=== PATIENT | male | born 1955 | race American Indian/Alaskan Native ===

== ENCOUNTER 2017-03-06 12:30 | Inpatient (IN) | payer OTHER ==
[2017-03-06] MEDS ORDERED: NACL 0.9% 1000 ML 1,000 ML ONE ×2 (12:38→15:54)
[2017-03-06] MEDS ORDERED: NACL 0.9% 500 ML 500 ML IV ONE ×2 (12:53→15:50)
[2017-03-06 13:35] LABS: Basophils % (Auto) 0.3 % (0.0-1.8); Eosinophils % (Auto) 0.1 % (0.0-4.3); Hematocrit 36.2 % (35.5-45.6); Hemoglobin 11.8 gm/dl (11.8-15.2); Mean Corpuscular HGB Conc 33 % (32-34); Mean Corpuscular Hemoglobin 32 pg (28-32); Mean Corpuscular Volume 99 fl (84-94); Red Blood Count 3.67 M/mm3 (3.65-5.03); Red Cell Distribution Width 14.1 % (13.2-15.2); White Blood Count 11.2 K/mm3 (4.5-11.0)
[2017-03-06 13:39] LABS: Platelet Count 65 K/mm3 (140-440)
--- NOTE | 2017-03-06 13:43 | Emergency Department Report ---
HPI - General Chief Complaint: Weakness Time Seen by Provider: 03/06/17 13:16 - HPI HPI: This is a 62 year-old male presents to the emergency department via EMS with a complaint of some generalized weakness and pain to his buttocks where he feels he has decubitus ulcers. Patient has a past medical history of CHF, COPD, diabetes, hypertension and he is wheelchair dependent and has 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 He has an indwelling Pierre catheter. She follows with the [facility] for his primary care needs. Patient does appear very fatigued and is sort of a poor historian at this point. ED Past Medical Hx - Past Medical History Previous Medical History?: Yes Hx Hypertension: Yes Hx Congestive Heart Failure: Yes Hx Diabetes: Yes Hx COPD: Yes - Social History Smoking Status: Current Every Day Smoker Substance Use Type: Prescribed ED Review of Systems ROS: Stated complaint: LETHARGIC/HYPOTENSIVE/ULCERS Other details as noted in HPI Comment: Unobtainable due to pts medical conditions Physical Exam - Physical Exam Vital Signs: Vital Signs 03/06/17 03/06/17 03/06/17 12:31 12:35 12:45 Temperature 98.3 F Pulse Rate 73 51 L 53 L Respiratory 17 9 L Rate Blood Pressure 94/46 97/45 O2 Sat by Pulse 97 99 Oximetry Physical Exam: GENERAL: The patient is well-developed well-nourished. HENT: Normocephalic. Atraumatic. Patient has moist mucous membranes. EYES: Extraocular motions are intact. Pupils equal reactive to light bilaterally. NECK: Supple. Trachea is midline. CHEST/LUNGS: Clear to auscultation. There is no respiratory distress noted. HEART/CARDIOVASCULAR: Regular. There is no tachycardia. There is no murmur. ABDOMEN: Abdomen is soft, nontender. Patient has normal bowel sounds. There is no abdominal distention. SKIN: Skin is warm and dry. There are some posterior bilateral lower extremity pressure ulcers but no surrounding erythema or any weeping or drainage. NEURO: The patient is awake, alert, and oriented. The patient is cooperative. The patient has normal speech. MUSCULOSKELETAL: There is no tenderness or deformity. Chronic lower extremity paraplegia. There is no evidence of acute injury. ED Course Vital Signs 03/06/17 03/06/17 03/06/17 12:31 12:35 12:45 Temperature 98.3 F Pulse Rate 73 51 L 53 L Respiratory 17 9 L Rate Blood Pressure 94/46 97/45 O2 Sat by Pulse 97 99 Oximetry - Central Line Placement Right Femoral Consent Obtained: verbal consent Time Out Performed: Yes Patient Placed on Monitor/Pulse Ox: Yes Prep: mask, gown, gloves Central Line Prep: Chlorhexidine scrub Local Anesthesia Used: Lidocaine 1% Amount of Anesthesia Used (mls): 3 Ultrasound Used for Placement: Yes Central Line Lumen Inserted: triple Bloods Obtained for Lab: Yes Central Line Position: good blood return, all ports aspirated, flus, sutured in place with nyl Dressing Applied: Tegaderm Patient Tolerated Procedure: well Complications: none ED Medical Decision Making - Lab Data Result diagrams: 03/06/17 13:20 03/06/17 13:20 - EKG Data -: EKG Interpreted by Me EKG shows normal: sinus rhythm, axis, intervals (prolonged QT interval), QRS complexes, ST-T waves (nonspecific ST-T waves) Rate: bradycardia (52 bpm) - EKG Data Interpretation: nonspecific ST-T wave daniel - Radiology Data Radiology results: report reviewed, image reviewed interpreted by me: Chest x-ray does not show any acute process. There are no pleural effusions, obvious pneumonia and there is no pneumothorax. ULTRASOUND ABDOMEN LIMITED: TECHNIQUE: Transabdominal ultrasound with color Doppler interrogation. HISTORY: Elevated bilirubin. COMPARISON: none. FINDINGS: LIVER: The liver is echogenic consistent with diffuse fatty infiltration or nonspecific liver parenchymal disease. BILIARY SYSTEM: Normal. PANCREAS: Normal. RIGHT KIDNEY: The right kidney measures 10.9 cm. There are multiple echogenic areas within the right kidney consistent with stones. No associated hydronephrosis. PROXIMAL AORTA: Normal. ASCITES: None. IMPRESSION: Mild hepatic steatosis. Right nephrolithiasis, nonobstructing. Transcribed By: TTR Dictated By: NEMESIO LOCKWOOD JR, MD Electronically Authenticated By: NEMESIO LOCKWOOD JR, MD Signed Date/Time: 03/06/17 1527 - Medical Decision Making Patient has a mild leukocytosis, UTI, lactic acidosis, mild hyponatremia and some hyperglycemia without DKA. He has persistent hypotension despite some IV fluid resuscitation and we do not want to volume overload him as he has a history of CHF. Right femoral central line was placed. Blood and urine cultures sent and patient was started on antibiotics. The patient may need pressors and may need to be transferred to the ICU but has been accepted for admission by the hospitalist, Dr. Tee. - Differential Diagnosis sepsis, UTI, pneumonia, decubitus ulcers Critical Care Time: Yes Critical care time in (mins) excluding proc time.: 35 Critical care attestation.: If time is entered above; I have spent that time in minutes in the direct care of this critically ill patient, excluding procedure time. Critical care time spent on this patient and during his initial evaluation, multiple re-evaluations , IV fluid resuscitation, ordering and interpretation of labs and imaging, discussion with the patient and his family, discussion with the hospitalist and disposition planning. This is independent of the time spent doing a central line procedure. Critical Care Time: 35 minutes ED Disposition Clinical Impression: Lactic acidosis Sepsis Qualifiers: Sepsis type: sepsis due to unspecified organism Qualified Code(s): A41.9 - Sepsis, unspecified organism UTI (urinary tract infection) Qualifiers: Urinary tract infection type: acute cystitis Hematuria presence: with hematuria Qualified Code(s): N30.01 - Acute cystitis with hematuria Hypotension Qualifiers: Hypotension type: unspecified hypotension type Qualified Code(s): I95.9 - Hypotension, unspecified Disposition: DC-09 OP ADMIT IP TO THIS HOSP Is pt being admited?: Yes Condition: Serious Time of Disposition: 16:15
[2017-03-06 13:44] LABS: Bacteria,Urine 4+ /HPF (Negative); Bilirubin,Urine NEG (Negative); Blood,Urine LG (Negative); Ketones,Urine NEG (Negative); Leukocyte Esterase,Urine MOD (Negative); Mucus,Urine 1+ /HPF; Nitrite,Urine NEG (Negative)
[2017-03-06 13:46] LABS: RBC,Urine > 182.0 /HPF (0.0-6.0); WBC,Urine > 182.0 /HPF (0.0-6.0)
--- NOTE | 2017-03-06 13:48 | XRay Report ---
AP CHEST: HISTORY: Sepsis, weakness AP view of the chest demonstrates a normal mediastinal and cardiac contour with clear lungs and normal bony and soft tissue structures. IMPRESSION: Unremarkable AP chest.
[2017-03-06 13:50] LABS: INR 1.43 (0.87-1.13)
[2017-03-06] MEDS ORDERED: LEVAQUIN 750MG/150ML 750 MG/150 ML BAG IV ONE (13:50)
[2017-03-06 14:01] LABS: Alanine Aminotransferase 10 units/L (7-56); Albumin 2.3 g/dL (3.9-5); Albumin/Globulin Ratio 0.5 %; Alkaline Phosphatase 83 units/L (35-129); Anion Gap 20 mmol/L; BUN/Creatinine Ratio 9; Blood Urea Nitrogen 12 mg/dL (9-20); Calcium 8.3 mg/dL (8.4-10.2); Carbon Dioxide 20 mmol/L (22-30); Chloride 95.9 mmol/L (98-107); Glucose 295 mg/dL (75-100); Potassium 4.4 mmol/L (3.6-5.0); Sodium 131 mmol/L (137-145); Total Protein 7.4 g/dL (6.3-8.2)
--- NOTE | 2017-03-06 15:31 | Ultrasound Report ---
ULTRASOUND ABDOMEN LIMITED: TECHNIQUE: Transabdominal ultrasound with color Doppler interrogation. HISTORY: Elevated bilirubin. COMPARISON: none. FINDINGS: LIVER: The liver is echogenic consistent with diffuse fatty infiltration or nonspecific liver parenchymal disease. BILIARY SYSTEM: Normal. PANCREAS: Normal. RIGHT KIDNEY: The right kidney measures 10.9 cm. There are multiple echogenic areas within the right kidney consistent with stones. No associated hydronephrosis. PROXIMAL AORTA: Normal. ASCITES: None. IMPRESSION: Mild hepatic steatosis. Right nephrolithiasis, nonobstructing.
[2017-03-06] MEDS ORDERED: NACL 0.9% 1000 ML 1,000 ML IV ONE (15:59)
[2017-03-06] MEDS ORDERED: HEPARIN ONE (16:30)
[2017-03-06] MEDS ORDERED: LEVOPHED 8 MG in NACL 0.9% 250ML 242 ML IV SCH (20:00)
--- NOTE | 2017-03-06 21:05 | History and Physical Report ---
History of Present Illness Date of examination: 03/06/17 Date of admission: 03/06/17 16:15 Chief complaint: CC Extreme weaknwss and Fatigue for 3 days History of present illness: HPI This is a 62 year-old male presents to the emergency department via EMS with a complaint of some generalized weakness and pain to his buttocks where he feels he has decubitus ulcers.Patient had a C spine injury while in [employer] around 1975.Since then he has been a paraplegic and bed bound with transfer to wheel chair by Nurses from [place].They come twice a day and spend about 2 hrs in am and 3 hrs in PM taking care of his ADL's Patient has a past medical history of CHF, COPD, diabetes, hypertension and he is wheelchair dependent and has 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 He has an indwelling Santos catheter. She follows with the [facility] for his primary care needs. Patient does appear very fatigued and is sort of a poor historian at this point.He attributes his resent illness to Visiting nurses coming irregularly Does not want to go to SNF Past Medical History Hypertension Congestive Heart Failure Diabetes COPD -Social History Smoking Status: Current Every Day Smoker Substance Use Type: Prescribed Lives alone with the help of visiting nurses from [place] system for 2 hrs in AM and 3 hrs in PM Surgical History: Fam Hx Htn ROS: Stated complaint: LETHARGIC/HYPOTENSIVE/ULCERS Other details as noted in HPI Comment: Unobtainable due to pts medical conditions Medications and Allergies Allergies Allergy/AdvReac Type Severity Reaction Status Date / Time No Known Allergies Allergy Unverified 03/06/17 12:51 Active Meds: Active Medications Norepinephrine 8 mg/ Sodium (Chloride) 250 mls @ 3.75 mls/hr IV TITR ESTRELLA; 2 MCG /MIN PRN Reason: Protocol Last Admin: 03/06/17 20:20 Dose: 2 mcg/min, 3.75 mls/hr Insulin Human Regular (Novolin R) 0 units SUB-Q ACHS ESTRELLA PRN Reason: Protocol Stop: 03/09/17 21:59 Last Admin: 03/06/17 18:55 Dose: 2 units Exam - Constitutional Vitals: Temp Pulse Resp BP Pulse Ox 98.3 F 49 L 13 90/49 99 03/06/17 12:45 03/06/17 19:16 03/06/17 19:16 03/06/17 19:16 03/06/17 19:16 General appearance: Present: mild distress, well-nourished - EENT Eyes: Present: PERRL ENT: hearing intact, clear oral mucosa - Neck Neck: Present: supple, normal ROM - Respiratory Respiratory effort: normal Respiratory: bilateral: CTA - Cardiovascular Heart rate: 80 Rhythm: regular Heart Sounds: Present: S1 & S2. Absent: rub, click - Extremities Extremities: pulses symmetrical, No edema, abnormal (Ulcer -superficial ulcer healing on LLE lateral aspect of leg 10 inches above ankle) Peripheral Pulses: within normal limits - Abdominal General gastrointestinal: Present: soft, non-tender, non-distended, normal bowel sounds Male genitourinary: Present: normal - Integumentary Integumentary: Present: clear, warm, dry - Musculoskeletal Musculoskeletal: gait normal, strength equal bilaterally - Psychiatric Psychiatric: appropriate mood/affect, intact judgment & insight - Neurologic Neurologic: CNII-XII intact, moves all extremities Results - Labs CBC & Chem 7: 03/07/17 04:58 03/07/17 04:58 Labs: Laboratory Last Values WBC 11.2 K/mm3 (4.5-11.0) H 03/06/17 13:20 RBC 3.67 M/mm3 (3.65-5.03) 03/06/17 13:20 Hgb 11.8 gm/dl (11.8-15.2) 03/06/17 13:20 Hct 36.2 % (35.5-45.6) 03/06/17 13:20 MCV 99 fl (84-94) H 03/06/17 13:20 MCH 32 pg (28-32) 03/06/17 13:20 MCHC 33 % (32-34) 03/06/17 13:20 RDW 14.1 % (13.2-15.2) 03/06/17 13:20 Plt Count 65 K/mm3 (140-440) L 03/06/17 13:20 Lymph % (Auto) 20.6 % (13.4-35.0) 03/06/17 13:20 [place] % (Auto) 7.5 % (0.0-7.3) H 03/06/17 13:20 Eos % (Auto) 0.1 % (0.0-4.3) 03/06/17 13:20 Baso % (Auto) 0.3 % (0.0-1.8) 03/06/17 13:20 Lymph # 2.3 K/mm3 (1.2-5.4) 03/06/17 13:20 [place] # 0.8 K/mm3 (0.0-0.8) 03/06/17 13:20 Eos # 0.0 K/mm3 (0.0-0.4) 03/06/17 13:20 Baso # 0.0 K/mm3 (0.0-0.1) 03/06/17 13:20 Seg Neutrophils % 71.5 % (40.0-70.0) H 03/06/17 13:20 Seg Neutrophils # 8.0 K/mm3 (1.8-7.7) H 03/06/17 13:20 PT 18.2 Sec. (12.2-14.9) H 03/06/17 13:20 INR 1.43 (0.87-1.13) H 03/06/17 13:20 VBG pH 7.397 (7.320-7.420) 03/06/17 13:20 Sodium 131 mmol/L (137-145) L 03/06/17 13:20 Potassium 4.4 mmol/L (3.6-5.0) 03/06/17 13:20 Chloride 95.9 mmol/L (98-107) L 03/06/17 13:20 Carbon Dioxide 20 mmol/L (22-30) L 03/06/17 13:20 Anion Gap 20 mmol/L 03/06/17 13:20 BUN 12 mg/dL (9-20) 03/06/17 13:20 Creatinine 1.3 mg/dL (0.8-1.5) 03/06/17 13:20 Estimated GFR > 60 ml/min 03/06/17 13:20 BUN/Creatinine Ratio 9 % 03/06/17 13:20 Glucose 295 mg/dL (75-100) H 03/06/17 13:20 POC Glucose 191 (70-105) H 03/06/17 18:02 Lactic Acid 2.20 mmol/L (0.7-2.0) H* 03/06/17 16:35 Calcium 8.3 mg/dL (8.4-10.2) L 03/06/17 13:20 Total Bilirubin 2.20 mg/dL (0.1-1.2) H 03/06/17 13:20 AST 23 units/L (5-40) 03/06/17 13:20 ALT 10 units/L (7-56) 03/06/17 13:20 Alkaline Phosphatase 83 units/L (35-129) 03/06/17 13:20 Total Protein 7.4 g/dL (6.3-8.2) 03/06/17 13:20 Albumin 2.3 g/dL (3.9-5) L 03/06/17 13:20 Albumin/Globulin Ratio 0.5 % 03/06/17 13:20 Urine Color Red (Yellow) 03/06/17 13:21 Urine Turbidity Clear (Clear) 03/06/17 13:21 Urine pH 6.0 (5.0-7.0) 03/06/17 13:21 Ur Specific [place] 1.014 (1.003-1.030) 03/06/17 13:21 Urine Protein 100 mg/dl mg/dL (Negative) 03/06/17 13:21 Urine Glucose (UA) Neg mg/dL (Negative) 03/06/17 13:21 Urine Ketones Neg mg/dL (Negative) 03/06/17 13:21 Urine Blood Lg (Negative) 03/06/17 13:21 Urine Nitrite Neg (Negative) 03/06/17 13:21 Urine Bilirubin Neg (Negative) 03/06/17 13:21 Urine Urobilinogen 4.0 mg/dL (<2.0) 03/06/17 13:21 Ur Leukocyte Esterase Mod (Negative) 03/06/17 13:21 Urine WBC (Auto) > 182.0 /HPF (0.0-6.0) H 03/06/17 13:21 Urine RBC (Auto) > 182.0 /HPF (0.0-6.0) 03/06/17 13:21 U Epithel Cells (Auto) 2.0 /HPF (0-13.0) 03/06/17 13:21 Urine Bacteria (Auto) 4+ /HPF (Negative) 03/06/17 13:21 Urine WBC Clumps 3+ /HPF 03/06/17 13:21 Urine Mucus 1+ /HPF 03/06/17 13:21 Short CBC 03/06/17 03/07/17 Range/Units 13:20 04:58 WBC 11.2 H 10.8 (4.5-11.0) K/mm3 Hgb 11.8 12.2 (11.8-15.2) gm/dl Hct 36.2 35.9 (35.5-45.6) % Plt Count 65 L 68 L (140-440) K/mm3 BMP 03/06/17 03/07/17 13:20 04:58 Sodium 131 L 134 L Potassium 4.4 3.4 L D Chloride 95.9 L 99.4 Carbon Dioxide 20 L 23 BUN 12 10 Creatinine 1.3 0.9 Glucose 295 H 158 H Calcium 8.3 L 7.9 L Liver Function 03/06/17 03/07/17 Range/Units 13:20 04:58 Total Bilirubin 2.20 H 1.50 H (0.1-1.2) mg/dL AST 23 22 (5-40) units/L ALT 10 10 (7-56) units/L Alkaline Phosphatase 83 88 (35-129) units/L Albumin 2.3 L 2.1 L (3.9-5) g/dL Urine 03/06/17 Range/Units 13:21 Urine Color Red (Yellow) Urine pH 6.0 (5.0-7.0) Ur Specific [place] 1.014 (1.003-1.030) Urine Protein 100 mg/dl (Negative) mg/dL Urine Glucose (UA) Neg (Negative) mg/dL - Imaging and Cardiology EKG: report reviewed (NSR 52/min) Chest x-ray: report reviewed (NAF) US - abdomen: report reviewed (NAF) Assessment and Plan Assessment and plan: The high probability of a clinically significant, sudden or life threatening deterioration of the [Pulmonary, cadiac, renal] system(s) required my full and direct attention, intervention and personal management. The aggregate critical care time was [41] minutes. This time is in addition to time spent performing reported procedures but includes the following: [x] Data Review and interpretation [x] Patient assessment and monitoring of vital signs [x] Documentation [x] Medication orders and management Advance Directives: Yes (Full code) VTE prophylaxis?: Chemical Plan of care discussed with patient/family: Yes - Patient Problems (1) Sepsis Current Visit: Yes Status: Acute Qualifiers: Sepsis type: sepsis due to unspecified organism Qualified Code(s): A41.9 - Sepsis, unspecified organism Plan to address problem: Sepsis sec to UTI Started on Zosyn and Vancomycin ID consult requsted for ABx Coverage Patient has indwelling santos catheter (2) Hypotension Current Visit: Yes Status: Acute Qualifiers: Hypotension type: unspecified hypotension type Qualified Code(s): I95.9 - Hypotension, unspecified Plan to address problem: Sec to sepsis IV NS boluses given and not responding. Started on IV Levophed. Requested Dr Mars for Cental line (3) Lactic acidosis Current Visit: Yes Status: Acute Plan to address problem: Sec to Sepsis (4) UTI (urinary tract infection) Current Visit: Yes Status: Acute Qualifiers: Urinary tract infection type: acute cystitis Hematuria presence: with hematuria Qualified Code(s): N30.01 - Acute cystitis with hematuria Plan to address problem: Check Blood and urine cultures On Zosyn and vancomycin (5) Decubital ulcer Current Visit: Yes Status: Chronic Qualifiers: Pressure ulcer location: calf Pressure ulcer stage: stage 2 Laterality: left Qualified Code(s): L89.892 - Pressure ulcer of other site, stage 2 Plan to address problem: Wound care requested (6) Paraplegia Current Visit: Yes Status: Chronic Plan to address problem: Patient dependent on Nurses for ADL's and not getting Home visits regularly. Suggested SNF but patient refuses vehemently. Family wants SNF but Patient has to decide for himself (7) COPD (chronic obstructive pulmonary disease) Current Visit: Yes Status: Chronic Qualifiers: Emphysema type: unspecified Plan to address problem: Duonebs prn (8) Stasis dermatitis of both legs Current Visit: Yes Status: Chronic (9) DVT prophylaxis Current Visit: Yes Status: Acute Plan to address problem: on Lovenox
[2017-03-06] MEDS ORDERED: MILK OF MAGNESIA PO PRN (21:07)
[2017-03-06] MEDS ORDERED: TYLENOL PO PRN (21:07)
[2017-03-06] MEDS ORDERED: DULCOLAX PR PRN (21:07)
[2017-03-06] MEDS ORDERED: ZOFRAN IV PRN (21:07)
[2017-03-06] MEDS: NACL 0.9% 1000 ML 1,000 ML IV SCH (22:00)
[2017-03-06] MEDS ORDERED: HEPARIN SUB-Q SCH (22:00)
[2017-03-06] MEDS ORDERED: VANCOMYCIN 2,000 MG in NACL 0.9% 500 ML 500 ML IV ONE (22:00)
[2017-03-06] MEDS ORDERED: VANCOMYCIN PHARMACY TO DOSE IV SCH (22:00)
[2017-03-06] MEDS: PEPCID IV SCH (23:13)
[2017-03-06] MEDS: ZOSYN/NS 4.5GM/100ML 4.5 GM/100 ML VIAL IV SCH (23:16)
[2017-03-07] MEDS: PERCOCET 5/325 PO PRN ×3 (04:44→23:27)
[2017-03-07 05:06] LABS: Basophils % (Auto) 0.5 % (0.0-1.8); Hematocrit 35.9 % (35.5-45.6); Hemoglobin 12.2 gm/dl (11.8-15.2); Mean Corpuscular HGB Conc 34 % (32-34); Mean Corpuscular Hemoglobin 33 pg (28-32); Mean Corpuscular Volume 98 fl (84-94); Red Blood Count 3.66 M/mm3 (3.65-5.03); White Blood Count 10.8 K/mm3 (4.5-11.0)
[2017-03-07 05:07] LABS: Platelet Count 68 K/mm3 (140-440)
[2017-03-07 05:32] LABS: Alanine Aminotransferase 10 units/L (7-56); Albumin 2.1 g/dL (3.9-5); Albumin/Globulin Ratio 0.4 %; Alkaline Phosphatase 88 units/L (35-129); Anion Gap 15 mmol/L; BUN/Creatinine Ratio 11; Blood Urea Nitrogen 10 mg/dL (9-20); Calcium 7.9 mg/dL (8.4-10.2); Carbon Dioxide 23 mmol/L (22-30); Chloride 99.4 mmol/L (98-107); Glucose 158 mg/dL (75-100); Potassium 3.4 mmol/L (3.6-5.0); Sodium 134 mmol/L (137-145); Total Protein 7.1 g/dL (6.3-8.2)
[2017-03-07] MEDS: ZOSYN/NS 4.5GM/100ML 4.5 GM/100 ML VIAL IV SCH ×3 (06:06→23:25)
[2017-03-07] MEDS ORDERED: K-DUR PO ONE (10:00)
[2017-03-07] MEDS: PEPCID IV SCH ×2 (10:05→23:26)
--- NOTE | 2017-03-07 11:07 | Progress Note ---
Assessment and Plan / Sepsis likely due to UTI Started on Zosyn and Vancomycin ID consult requsted for ABx Coverage Patient has indwelling santos catheter which is has changed in the ER will follow cx /septic shock: Sec to sepsis IV NS boluses given in the ER and placed on levophed. Off levophed since thia am /Lactic acidosis Sec to Sepsis, will trend / UTI (urinary tract infection) follow Blood and urine cultures On Zosyn and vancomycin /Decubital ulcer Wound care requested /Paraplegia Patient dependent on Nurses for ADL's and not getting Home visits regularly. Suggested SNF but patient refuses vehemently. Family wants SNF but Patient has to decide for himself /COPD (chronic obstructive pulmonary disease) Duonebs prn /Stasis dermatitis of both legs wound care /DVT prophylaxis on Lovenox Brief history: 60 years old male with history of HTN, COPD, DM, CHF, paraplegic due to C spine injury while in [employer] around 1975 with chronic indweling santos, admitted on 03/06/2017 due to generalized weakness, lethargy of unknown duration. EMS found him lethargic with a BP of 70/30 and HR of 50 bpm after receiving 0.5 of atropine. He was placed on levophed and admitted to ICU Radiological test: CXR - no infiltrates abdominal US - no ascitis Hospitalist Physical exam: GENERAL: well-developed and well-nourished lying on bed appeared to be in no discomfort. HEENT: Normocephalic. Atraumatic. No conjunctival congestion or icterus. Patient has moist mucous membranes. NECK: Supple. Trachea midline. CHEST/LUNGS: Clear to auscultated bilaterally, breathing nonlabored. No wheezes crackles or rhonchi. HEART/CARDIOVASCULAR: Regular in rate and rhythm. S1 and S2 positive. ABDOMEN: Abdomen is soft, nontender. Patient has normal bowel sounds. SKIN: b/l LE skin discoloration. Warm and dry. NEURO: paraplegic. Follows command. MUSCULOSKELETAL: No joint effusion or tenderness. EXTRIMITY: pulses symmetrical, No edema, abnormal (Ulcer -superficial ulcer healing on LLE lateral aspect of leg 10 inches above ankle) PSYCH: Cooperative. Subjective Date of service: 03/07/17 Interval history: Patient seen and examined. Medical records and medication list reviewed. No acute event overnight noted by the RN. Off levophed since this am Patient denies any chest pain or difficulty breathing. c/o nausea Discussed plan of care at bedside with patient. Objective - Constitutional Vitals: Vital Signs - 12hr 03/06/17 03/06/17 03/06/17 23:15 23:30 23:33 Temperature Pulse Rate 54 L 57 L Pulse Rate [ None] Respiratory 20 14 Rate Blood Pressure 125/50 125/50 139/70 O2 Sat by Pulse 100 100 Oximetry 03/07/17 03/07/17 03/07/17 00:21 00:23 02:00 Temperature 98.4 F Pulse Rate 53 L Pulse Rate [ 53 L None] Respiratory 19 Rate Blood Pressure 114/44 O2 Sat by Pulse 100 100 Oximetry 03/07/17 03/07/17 03/07/17 02:14 02:15 02:41 Temperature Pulse Rate 55 L Pulse Rate [ 57 L 53 L None] Respiratory 21 21 21 Rate Blood Pressure 127/39 110/46 O2 Sat by Pulse 100 100 100 Oximetry 03/07/17 03/07/17 03/07/17 03:00 04:00 04:21 Temperature 98.3 F Pulse Rate 53 L 55 L Pulse Rate [ None] Respiratory 21 21 16 Rate Blood Pressure 115/45 O2 Sat by Pulse 100 99 100 Oximetry 03/07/17 03/07/17 03/07/17 05:00 06:00 07:00 Temperature Pulse Rate 58 L 61 65 Pulse Rate [ None] Respiratory 16 18 20 Rate Blood Pressure 108/49 123/45 114/41 O2 Sat by Pulse 100 100 99 Oximetry 03/07/17 03/07/17 03/07/17 08:00 09:00 10:00 Temperature 99.3 F Pulse Rate 65 80 76 Pulse Rate [ None] Respiratory 21 16 19 Rate Blood Pressure 114/41 103/49 107/49 O2 Sat by Pulse 99 98 99 Oximetry - Labs CBC & Chem 7: 03/07/17 04:58 03/08/17 10:52 Labs: Abnormal lab results 03/06/17 03/06/17 03/06/17 Range/Units 12:45 13:20 13:20 WBC 11.2 H (4.5-11.0) K/mm3 MCV 99 H (84-94) fl MCH (28-32) pg Plt Count 65 L (140-440) K/mm3 [place] % (Auto) 7.5 H (0.0-7.3) % Seg Neutrophils % 71.5 H (40.0-70.0) % Seg Neutrophils # 8.0 H (1.8-7.7) K/mm3 PT 18.2 H (12.2-14.9) Sec. INR 1.43 H (0.87-1.13) Sodium (137-145) mmol/L Potassium (3.6-5.0) mmol/L Chloride (98-107) mmol/L Carbon Dioxide (22-30) mmol/L Glucose (75-100) mg/dL POC Glucose 280 H (70-105) Lactic Acid (0.7-2.0) mmol/L Calcium (8.4-10.2) mg/dL Total Bilirubin (0.1-1.2) mg/dL Albumin (3.9-5) g/dL Urine WBC (Auto) (0.0-6.0) /HPF 03/06/17 03/06/17 03/06/17 Range/Units 13:20 13:20 13:21 WBC (4.5-11.0) K/mm3 MCV (84-94) fl MCH (28-32) pg Plt Count (140-440) K/mm3 [place] % (Auto) (0.0-7.3) % Seg Neutrophils % (40.0-70.0) % Seg Neutrophils # (1.8-7.7) K/mm3 PT (12.2-14.9) Sec. INR (0.87-1.13) Sodium 131 L (137-145) mmol/L Potassium (3.6-5.0) mmol/L Chloride 95.9 L (98-107) mmol/L Carbon Dioxide 20 L (22-30) mmol/L Glucose 295 H (75-100) mg/dL POC Glucose (70-105) Lactic Acid 3.50 H* (0.7-2.0) mmol/L Calcium 8.3 L (8.4-10.2) mg/dL Total Bilirubin 2.20 H (0.1-1.2) mg/dL Albumin 2.3 L (3.9-5) g/dL Urine WBC (Auto) > 182.0 H (0.0-6.0) /HPF 03/06/17 03/06/17 03/07/17 Range/Units 16:35 18:02 04:58 WBC (4.5-11.0) K/mm3 MCV 98 H (84-94) fl MCH 33 H (28-32) pg Plt Count 68 L (140-440) K/mm3 [place] % (Auto) 7.7 H (0.0-7.3) % Seg Neutrophils % (40.0-70.0) % Seg Neutrophils # (1.8-7.7) K/mm3 PT (12.2-14.9) Sec. INR (0.87-1.13) Sodium (137-145) mmol/L Potassium (3.6-5.0) mmol/L Chloride (98-107) mmol/L Carbon Dioxide (22-30) mmol/L Glucose (75-100) mg/dL POC Glucose 191 H (70-105) Lactic Acid 2.20 H* (0.7-2.0) mmol/L Calcium (8.4-10.2) mg/dL Total Bilirubin (0.1-1.2) mg/dL Albumin (3.9-5) g/dL Urine WBC (Auto) (0.0-6.0) /HPF 03/07/17 Range/Units 04:58 WBC (4.5-11.0) K/mm3 MCV (84-94) fl MCH (28-32) pg Plt Count (140-440) K/mm3 [place] % (Auto) (0.0-7.3) % Seg Neutrophils % (40.0-70.0) % Seg Neutrophils # (1.8-7.7) K/mm3 PT (12.2-14.9) Sec. INR (0.87-1.13) Sodium 134 L (137-145) mmol/L Potassium 3.4 L D (3.6-5.0) mmol/L Chloride (98-107) mmol/L Carbon Dioxide (22-30) mmol/L Glucose 158 H (75-100) mg/dL POC Glucose (70-105) Lactic Acid (0.7-2.0) mmol/L Calcium 7.9 L (8.4-10.2) mg/dL Total Bilirubin 1.50 H (0.1-1.2) mg/dL Albumin 2.1 L (3.9-5) g/dL Urine WBC (Auto) (0.0-6.0) /HPF
[2017-03-07] MEDS: VANCOMYCIN 1,750 MG in NACL 0.9% 500 ML 500 ML IV SCH ×2 (12:21→23:26)
--- NOTE | 2017-03-07 12:33 | Consultation ---
History of Present Illness - Reason for Consult Consult date: 03/07/17 sepsis Requesting physician: ROLDAN MCNEAL - History of Present Illness 60 years old male with history of HTN, COPD, DM, CHF, paraplegic due to C spine injury while in [employer] around 1975, admitted on 03/06/2017 due to generalized weakness, lethargy of unknown duration. Patient reports he has been feeling sick for a week. He has a chronic indweling santos cahnged once a month. EMS found him lethargic with a BP of 70/30 and HR of 50 bpm after receiving .5 of atropine. Also noted cloudy urine. He also was c/o pain to his buttocks where he feels he has decubitus ulcers. In the ED, initial temperature was 98.3, heart rate 73, respirations 17, O2 sat 97, blood pressure at night 94/46. White count 11.2. Creat 1.3. Lactic acid 3.5. Urinalysis showed large leukocyte esterase and 182 white blood cells. CXR neg. Abd US shows mild hepatic steatosis and right nephrolithiasis non obstructive. In the ED he was placed on levophed. Microbiology: Blood cultures: 03/06 neg Urine cultures: 03/06 >100 mixed bacteria Respiratory cultures: Current Antimicrobials: Zosyn 03/06 Previous Antimicrobials: Past History Past Medical History: hypertension, hyperlipidemia, other (paraplegia, neurogenic bladder) Past Surgical History: No surgical history Social history: no significant social history Family history: no significant family history Medications and Allergies Allergies Allergy/AdvReac Type Severity Reaction Status Date / Time No Known Allergies Allergy Unverified 03/06/17 12:51 Home Medications Medication Instructions Recorded Confirmed Last Taken Type Insulin NPH/Regular [NovoLIN 70/30] 30 units SQ QAM 03/07/17 03/07/17 03/06/17 History NovoLIN 70/30 20 units SQ QPM 03/07/17 03/07/17 03/05/17 History Active Meds: Active Medications Acetaminophen (Tylenol) 650 mg PO Q4H PRN PRN Reason: Pain MILD(1-3)/Fever >100.5/JOE Bisacodyl (Dulcolax) 10 mg [place] QDAY PRN PRN Reason: Constipation unrelieved by MOM Famotidine (Pepcid) 20 mg IV BID ESTRE[facility] Last Admin: 03/07/17 10:05 Dose: 20 mg Norepinephrine 8 mg/ Sodium (Chloride) 250 mls @ 3.75 mls/hr IV TITR [facility]RE[facility]; 2 MCG /MIN PRN Reason: Protocol Last Titration: 03/07/17 07:30 Dose: 0 mcg/min, 0 mls/hr Sodium Chloride (Nacl 0.9% 1000 Ml) 1,000 mls @ 125 mls/hr IV DIRECT [facility]RE[facility] Last Admin: 03/06/17 22:00 Dose: 125 mls/hr Piperacillin Sod/Tazobactam Sod (Zosyn/Ns 4.5gm/100ml) 4.5 gm in 100 mls @ 200 mls/hr IV Q8HR [facility] PRN Reason: Protocol Last Admin: 03/07/17 06:06 Dose: 200 mls/hr Vancomycin HCl 1,750 mg/ (Sodium Chloride) 517.5 mls @ 333.333 mls/hr IV Q12H [facility] Last Admin: 03/07/17 12:21 Dose: 333.333 mls/hr Insulin Human Regular (Novolin R) 0 units SUB-Q ACHS [facility] PRN Reason: Protocol Last Admin: 03/07/17 12:19 Dose: 2 units Magnesium Hydroxide (Milk Of Magnesia) 30 ml PO Q4H PRN PRN Reason: Constipation Ondansetron HCl (Zofran) 4 mg IV Q8H PRN PRN Reason: N/V unrelieved by Reglan Oxycodone/Acetaminophen (Percocet 5/325) 1 tab PO Q6H PRN PRN Reason: Pain, Moderate (4-6) Last Admin: 03/07/17 10:04 Dose: 1 tab Vancomycin HCl (Vancomycin Pharmacy To Dose) 1 each IV PKCONSULT [facility] PRN Reason: Protocol Review of Systems All systems: negative (as per JANIYA rest neg) Physical Examination - Physical Exam Narrative exam: General appearance: Alert in NAD, conversant Eyes: anicteric sclerae, moist conjunctivae; no lid-lag; PERRLA HENT: Atraumatic; oropharynx clear Neck: Trachea midline; supple, no thyromegaly or lymphadenopathy Lungs: CTA, with normal respiratory effort and no intercostal retractions CV: shaneka Abdomen: Soft, non-tender Extremities: christelle leg edema, + leg ulcer Skin: christelle leg chronic discoloration Psych: Appropriate affect, alert and oriented to person, place and time. Neuro: alert and oriented x 3. paraplegic Lines: - Constitutional Vitals: Vital Signs Temp Pulse Resp BP Pulse Ox 99.3 F 71 16 101/50 99 03/07/17 08:00 03/07/17 12:00 03/07/17 12:00 03/07/17 12:00 03/07/17 12:00 Temperature -Last 24 Hours Temperature 99.3 F Temperature 98.3 F Temperature 98.4 F Temperature 98.3 F Temperature 98.3 F Results - Labs CBC & Chem 7: 03/07/17 04:58 03/07/17 04:58 Labs: Abnormal lab results 03/06/17 03/06/17 03/06/17 Range/Units 12:45 13:20 13:20 WBC 11.2 H (4.5-11.0) K/mm3 MCV 99 H (84-94) fl MCH (28-32) pg Plt Count 65 L (140-440) K/mm3 Polk % (Auto) 7.5 H (0.0-7.3) % Seg Neutrophils % 71.5 H (40.0-70.0) % Seg Neutrophils # 8.0 H (1.8-7.7) K/mm3 PT 18.2 H (12.2-14.9) Sec. INR 1.43 H (0.87-1.13) Sodium (137-145) mmol/L Potassium (3.6-5.0) mmol/L Chloride (98-107) mmol/L Carbon Dioxide (22-30) mmol/L Glucose (75-100) mg/dL POC Glucose 280 H (70-105) Lactic Acid (0.7-2.0) mmol/L Calcium (8.4-10.2) mg/dL Total Bilirubin (0.1-1.2) mg/dL Albumin (3.9-5) g/dL Urine WBC (Auto) (0.0-6.0) /HPF 03/06/17 03/06/17 03/06/17 Range/Units 13:20 13:20 13:21 WBC (4.5-11.0) K/mm3 MCV (84-94) fl MCH (28-32) pg Plt Count (140-440) K/mm3 Polk % (Auto) (0.0-7.3) % Seg Neutrophils % (40.0-70.0) % Seg Neutrophils # (1.8-7.7) K/mm3 PT (12.2-14.9) Sec. INR (0.87-1.13) Sodium 131 L (137-145) mmol/L Potassium (3.6-5.0) mmol/L Chloride 95.9 L (98-107) mmol/L Carbon Dioxide 20 L (22-30) mmol/L Glucose 295 H (75-100) mg/dL POC Glucose (70-105) Lactic Acid 3.50 H* (0.7-2.0) mmol/L Calcium 8.3 L (8.4-10.2) mg/dL Total Bilirubin 2.20 H (0.1-1.2) mg/dL Albumin 2.3 L (3.9-5) g/dL Urine WBC (Auto) > 182.0 H (0.0-6.0) /HPF 03/06/17 03/06/17 03/07/17 Range/Units 16:35 18:02 04:58 WBC (4.5-11.0) K/mm3 MCV 98 H (84-94) fl MCH 33 H (28-32) pg Plt Count 68 L (140-440) K/mm3 Polk % (Auto) 7.7 H (0.0-7.3) % Seg Neutrophils % (40.0-70.0) % Seg Neutrophils # (1.8-7.7) K/mm3 PT (12.2-14.9) Sec. INR (0.87-1.13) Sodium (137-145) mmol/L Potassium (3.6-5.0) mmol/L Chloride (98-107) mmol/L Carbon Dioxide (22-30) mmol/L Glucose (75-100) mg/dL POC Glucose 191 H (70-105) Lactic Acid 2.20 H* (0.7-2.0) mmol/L Calcium (8.4-10.2) mg/dL Total Bilirubin (0.1-1.2) mg/dL Albumin (3.9-5) g/dL Urine WBC (Auto) (0.0-6.0) /HPF 03/07/17 Range/Units 04:58 WBC (4.5-11.0) K/mm3 MCV (84-94) fl MCH (28-32) pg Plt Count (140-440) K/mm3 Polk % (Auto) (0.0-7.3) % Seg Neutrophils % (40.0-70.0) % Seg Neutrophils # (1.8-7.7) K/mm3 PT (12.2-14.9) Sec. INR (0.87-1.13) Sodium 134 L (137-145) mmol/L Potassium 3.4 L D (3.6-5.0) mmol/L Chloride (98-107) mmol/L Carbon Dioxide (22-30) mmol/L Glucose 158 H (75-100) mg/dL POC Glucose (70-105) Lactic Acid (0.7-2.0) mmol/L Calcium 7.9 L (8.4-10.2) mg/dL Total Bilirubin 1.50 H (0.1-1.2) mg/dL Albumin 2.1 L (3.9-5) g/dL Urine WBC (Auto) (0.0-6.0) /HPF Assessment and Plan Assessment: 1) Sepsis with initial septic shock: Present on admission, manifested by hypotension, leukocytosis, increased lactate. Etiology most likely UTI. 2) CA-UTI: pt with chronic indwelling cath and right non obstructive kidney stones -Urine cx >100 K mixed bacteria 3) Paraplegia 4) Neurogenic bladder 5) Sacral decubitus - not fully eval Plan: -follow-up blood cultures, urine culture -obtain C-reactive protein (CRP) -wound care consult and obtain wound cultures if infected -continue zosyn for now -change santos if it has not been done Thank you Dr Mcneal for your consultation, will follow up with you. Genny Granados MD Infectious Diseases Specialist [facility], [place] [facility] [phone] O [phone]
--- NOTE | 2017-03-07 13:42 | Consultation ---
History of Present Illness Consult date: 03/07/17 Requesting physician: ROLDAN MCNEAL Reason for consult: other (septic shock) History of present illness: This is a 62 year-old male presents to the emergency department via EMS with a complaint of some generalized weakness and pain to his buttocks where he feels he has decubitus ulcers.Patient had a C spine injury while in [employer] around 1975.Since then he has been a paraplegic and bed bound with transfer to wheel chair by Nurses from [place]. Patient has a past medical history of CHF, COPD, diabetes, hypertension and he is wheelchair dependent and has 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 He has an indwelling Santos catheter. He follows with the [facility] for his primary care needs. Patient does appear very fatigued and is sort of a poor historian at this point. He has a chronic indweling santos changed once a month. EMS found him lethargic with a BP of 70/30 and HR of 50 bpm after receiving .5 of atropine. Also noted cloudy urine. He also was c/o pain to his buttocks where he feels he has decubitus ulcers. In the ED, initial temperature was 98.3, heart rate 73, respirations 17, O2 sat 97, blood pressure at night 94/46. White count 11.2. Creat 1.3. Lactic acid 3.5. Urinalysis showed large leukocyte esterase and 182 white blood cells. CXR negative( films personally reviewed). Abd US shows mild hepatic steatosis and right nephrolithiasis non obstructive. In the ED he was placed on norepinephrine to maintain adequate blood pressure. He was admitted to the ICU and we have been consulted to assist with his management Thank you for the consultation. Patient was seen and examined. Vitals, labs, medications, chart and imaging were reviewed. Past History Past Medical History: hypertension, hyperlipidemia, other (paraplegia, neurogenic bladder) Past Surgical History: No surgical history Social history: no significant social history Family history: no significant family history Medications and Allergies Allergies Allergy/AdvReac Type Severity Reaction Status Date / Time No Known Allergies Allergy Unverified 03/06/17 12:51 Home Medications Medication Instructions Recorded Confirmed Last Taken Type Insulin NPH/Regular [NovoLIN 70/30] 30 units SQ QAM 03/07/17 03/07/17 03/06/17 History NovoLIN 70/30 20 units SQ QPM 03/07/17 03/07/17 03/05/17 History Active Meds: Active Medications Acetaminophen (Tylenol) 650 mg PO Q4H PRN PRN Reason: Pain MILD(1-3)/Fever >100.5/JOE Bisacodyl (Dulcolax) 10 mg [place] QDAY PRN PRN Reason: Constipation unrelieved by MOM Famotidine (Pepcid) 20 mg IV BID [facility] Last Admin: 03/07/17 10:05 Dose: 20 mg Norepinephrine 8 mg/ Sodium (Chloride) 250 mls @ 3.75 mls/hr IV TITR ESTRELLA; 2 MCG /MIN PRN Reason: Protocol Last Titration: 03/07/17 07:30 Dose: 0 mcg/min, 0 mls/hr Sodium Chloride (Nacl 0.9% 1000 Ml) 1,000 mls @ 125 mls/hr IV DIRECT ESTRELLA Last Admin: 03/06/17 22:00 Dose: 125 mls/hr Piperacillin Sod/Tazobactam Sod (Zosyn/Ns 4.5gm/100ml) 4.5 gm in 100 mls @ 200 mls/hr IV Q8HR [facility] PRN Reason: Protocol Last Admin: 03/07/17 06:06 Dose: 200 mls/hr Vancomycin HCl 1,750 mg/ (Sodium Chloride) 517.5 mls @ 333.333 mls/hr IV Q12H [facility] Last Admin: 03/07/17 12:21 Dose: 333.333 mls/hr Insulin Human Regular (Novolin R) 0 units SUB-Q ACHS [facility] PRN Reason: Protocol Last Admin: 03/07/17 12:19 Dose: 2 units Magnesium Hydroxide (Milk Of Magnesia) 30 ml PO Q4H PRN PRN Reason: Constipation Ondansetron HCl (Zofran) 4 mg IV Q8H PRN PRN Reason: N/V unrelieved by Reglan Oxycodone/Acetaminophen (Percocet 5/325) 1 tab PO Q6H PRN PRN Reason: Pain, Moderate (4-6) Last Admin: 03/07/17 10:04 Dose: 1 tab Vancomycin HCl (Vancomycin Pharmacy To Dose) 1 each IV PKCONSULT ESTRELLA PRN Reason: Protocol Review of Systems Constitutional: fever, chills, sweats Physical Examination Vital signs: Vital Signs Pulse Pulse Ox 73 97 03/06/17 12:31 03/06/17 12:31 General appearance: Present: mild distress, well-nourished, chronically ill looking - EENT Eyes: Present: PERRL ENT: hearing intact, clear oral mucosa - Neck Neck: Present: supple, normal ROM - Respiratory Respiratory effort: normal Respiratory: bilateral: CTA - Cardiovascular Heart rate: 80 Rhythm: regular Heart Sounds: Present: S1 & S2. Absent: rub, click - Extremities Extremities: pulses symmetrical, No edema, abnormal (Ulcer -superficial ulcer healing on LLE lateral aspect of leg 10 inches above ankle) Peripheral Pulses: within normal limits - Abdominal General gastrointestinal: Present: soft, non-tender, non-distended, normal bowel sounds Male genitourinary: Present: normal - Integumentary Integumentary: Present: clear, warm, dry - Musculoskeletal Musculoskeletal: gait normal, strength equal bilaterally - Psychiatric Psychiatric: appropriate mood/affect, intact judgment & insight - Neurologic Neurologic: CNII-XII intact, moves all extremities Results - Laboratory Findings CBC and BMP: 03/07/17 04:58 03/08/17 10:52 PT/INR, D-dimer PT 18.2 Sec. (12.2-14.9) H 03/06/17 13:20 INR 1.43 (0.87-1.13) H 03/06/17 13:20 Abnormal lab findings: Abnormal Labs 03/06/17 03/06/17 03/06/17 12:45 13:20 13:20 WBC 11.2 H MCV 99 H MCH Plt Count 65 L Bond % (Auto) 7.5 H Seg Neutrophils % 71.5 H Seg Neutrophils # 8.0 H PT 18.2 H INR 1.43 H Sodium Potassium Chloride Carbon Dioxide Glucose POC Glucose 280 H Lactic Acid Calcium Total Bilirubin Albumin Urine WBC (Auto) 03/06/17 03/06/17 03/06/17 13:20 13:20 13:21 WBC MCV MCH Plt Count Bond % (Auto) Seg Neutrophils % Seg Neutrophils # PT INR Sodium 131 L Potassium Chloride 95.9 L Carbon Dioxide 20 L Glucose 295 H POC Glucose Lactic Acid 3.50 H* Calcium 8.3 L Total Bilirubin 2.20 H Albumin 2.3 L Urine WBC (Auto) > 182.0 H 03/06/17 03/06/1703/07/17 16:35 18:02 04:58 WBC MCV 98 H MCH 33 H Plt Count 68 L Bond % (Auto) 7.7 H Seg Neutrophils % Seg Neutrophils # PT INR Sodium Potassium Chloride Carbon Dioxide Glucose POC Glucose 191 H Lactic Acid 2.20 H* Calcium Total Bilirubin Albumin Urine WBC (Auto) 03/07/17 04:58 WBC MCV MCH Plt Count Bond % (Auto) Seg Neutrophils % Seg Neutrophils # PT INR Sodium 134 L Potassium 3.4 L D Chloride Carbon Dioxide Glucose 158 H POC Glucose Lactic Acid Calcium 7.9 L Total Bilirubin 1.50 H Albumin 2.1 L Urine WBC (Auto) Assessment and Plan Severe Sepsis with septic shock probably secondary to UTI Lactic acidosis UTI (urinary tract infection) Sacral decubitus ulcer Paraplegia COPD (chronic obstructive pulmonary disease) Stasis dermatitis of both legs -Continue with antibiotics -Wean vasopressor for MAP>65 -Bronchodilators -Supplemental oxygen to keep O2 sats>88% -Accuchecks, insulin therapy and glycemic control -Broad spectrum antibiotics, then de-escalate and adjust based on cultures and ARSENIO -VTE prophylaxis -Wound cultures -Mobility, ROM and off loading - Monitor renal function and trend lactic acid levels -Continue with volume resuscitation In the event of cardiopulmonary arrest patient is full code. The high probability of a clinically significant, sudden or life threatening deterioration of the [Hemodynamic, cardiac, renal] system(s) required my full and direct attention, intervention and personal management. The aggregate critical care time was [62] minutes. This time is in addition to time spent performing reported procedures but includes the following: [x] Data Review and interpretation [x] Patient assessment and monitoring of vital signs [x] Documentation [x] Medication orders and management - Patient Problems (1) Severe sepsis with septic shock Current Visit: Yes Status: Acute Critical care time in (mins) excluding proc time.: 62 Critical care attestation.: If time is entered above; I have spent that time in minutes in the direct care of this critically ill patient, excluding procedure time.
[2017-03-07] MEDS: NACL 0.9% 1000 ML 1,000 ML IV SCH ×2 (13:46→23:29)
[2017-03-07] MEDS ORDERED: ISOPTO TEARS 0.5% OU PRN (13:57)
[2017-03-08] MEDS: ZOSYN/NS 4.5GM/100ML 4.5 GM/100 ML VIAL IV SCH ×3 (05:04→21:37)
[2017-03-08] MEDS: PERCOCET 5/325 PO PRN (07:01)
[2017-03-08] MEDS: PEPCID IV SCH (09:31)
[2017-03-08 11:23] LABS: Anion Gap 15 mmol/L; BUN/Creatinine Ratio 9; Blood Urea Nitrogen 6 mg/dL (9-20); Carbon Dioxide 22 mmol/L (22-30); Chloride 105.2 mmol/L (98-107); Glucose 134 mg/dL (75-100); Potassium 3.7 mmol/L (3.6-5.0); Sodium 138 mmol/L (137-145)
[2017-03-08] MEDS: VANCOMYCIN 1,750 MG in NACL 0.9% 500 ML 500 ML IV SCH ×2 (12:32→22:24)
[2017-03-08] MEDS: NACL 0.9% 1000 ML 1,000 ML IV SCH ×2 (12:53→22:23)
--- NOTE | 2017-03-08 15:51 | Progress Note ---
Assessment and Plan / Sepsis likely due to bacteremia Started on Zosyn and Vancomycin ID consult requsted for ABx Coverage Patient has indwelling santos catheter which is has changed in the ER will follow cx, blood cx growing E. coli /septic shock: Sec to sepsis IV NS boluses given in the ER and placed on levophed. Off levophed since 03/07/17 /Lactic acidosis Sec to Sepsis, trended down / UTI (urinary tract infection) follow Blood and urine cultures On Zosyn and vancomycin /Decubital ulcer Wound care requested /Paraplegia Patient dependent on Nurses for ADL's and not getting Home visits regularly. Suggested SNF but patient refuses vehemently. Family wants SNF but Patient has to decide for himself /COPD (chronic obstructive pulmonary disease) Duonebs prn /Stasis dermatitis of both legs wound care /DVT prophylaxis on Lovenox Brief history: 60 years old male with history of HTN, COPD, DM, CHF, paraplegic due to C spine injury while in [employer] around 1975 with chronic indweling santos, admitted on 03/06/2017 due to generalized weakness, lethargy of unknown duration. EMS found him lethargic with a BP of 70/30 and HR of 50 bpm after receiving 0.5 of atropine. He was placed on levophed and admitted to ICU. Radiological test: CXR - no infiltrates abdominal US - no ascitis Hospitalist Physical exam: GENERAL: well-developed and well-nourished lying on bed appeared to be in no discomfort. HEENT: Normocephalic. Atraumatic. No conjunctival congestion or icterus. Patient has moist mucous membranes. NECK: Supple. Trachea midline. CHEST/LUNGS: Clear to auscultated bilaterally, breathing nonlabored. No wheezes crackles or rhonchi. HEART/CARDIOVASCULAR: Regular in rate and rhythm. S1 and S2 positive. ABDOMEN: Abdomen is soft, nontender. Patient has normal bowel sounds. SKIN: b/l LE skin discoloration. Warm and dry. NEURO: paraplegic. Follows command. MUSCULOSKELETAL: No joint effusion or tenderness. EXTRIMITY: pulses symmetrical, No edema, abnormal (Ulcer -superficial ulcer healing on LLE lateral aspect of leg 10 inches above ankle) PSYCH: Cooperative. Subjective Date of service: 03/08/17 Interval history: Patient seen and examined. Medical records and medication list reviewed. No acute event overnight noted by the RN. Patient denies any chest pain or difficulty breathing. c/o diarrhea Discussed plan of care at bedside with patient. Objective - Constitutional Vitals: Vital Signs - 12hr 03/08/17 03/08/17 03/08/17 04:00 09:15 10:00 Temperature 97.8 F 98.5 F Pulse Rate 92 H 90 Respiratory 20 20 18 Rate Blood Pressure 148/71 Blood Pressure 157/68 [Left] O2 Sat by Pulse 97 96 Oximetry - Labs CBC & Chem 7: 03/07/17 04:58 03/08/17 10:52 Labs: Abnormal lab results 03/07/17 03/07/17 03/07/17 Range/Units 07:45 11:03 21:16 BUN (9-20) mg/dL Creatinine (0.8-1.5) mg/dL Glucose (75-100) mg/dL POC Glucose 149 H 192 H 138 H (70-105) Calcium (8.4-10.2) mg/dL 03/08/17 03/08/17 03/08/17 Range/Units 08:08 10:52 11:44 BUN 6 L (9-20) mg/dL Creatinine 0.7 L (0.8-1.5) mg/dL Glucose 134 H (75-100) mg/dL POC Glucose 142 H 138 H (70-105) Calcium 8.0 L (8.4-10.2) mg/dL
[2017-03-08] MEDS: PEPCID PO SCH (21:38)
[2017-03-09] MEDS: ZOSYN/NS 4.5GM/100ML 4.5 GM/100 ML VIAL IV SCH ×3 (05:53→21:47)
[2017-03-09] MEDS: PEPCID PO SCH ×2 (09:42→21:46)
[2017-03-09] MEDS: VANCOMYCIN 1,750 MG in NACL 0.9% 500 ML 500 ML IV SCH (11:41)
--- NOTE | 2017-03-09 12:43 | Progress Note ---
Assessment and Plan Assessment: 1) Sepsis with initial septic shock: better. Etiology most likely UTI / bacteremia 2) CA-UTI: pt with chronic indwelling cath and right non obstructive kidney stones -Urine cx >100 K mixed bacteria 3) Enterococcus durans septicemia: from UTI ? 4) Neurogenic bladder with chronic santos 5) Sacral decubitus - 6) Paraplegia Plan: -repeat blood cultures -obtain TTE -stop vancomycin -continue zosyn -obtain C-reactive protein (CRP) -needs IV antibiotics - probably zosyn 4.5 g IV q8h total 2 weeks from 03/06 until 03/19 -will place a PICC if repeat blood cx negative Thank you Dr Tee for your consultation, will follow up with you. Genny Granados MD Infectious Diseases Specialist [facility] M [phone] O [phone] Subjective Date of service: 03/09/17 Interval history: Feels ok no fever non verbal Microbiology: Blood cultures: 03/06 Enterococcus bustos 4 of 4 Urine cultures: 03/06 >100 mixed bacteria Respiratory cultures: Current Antimicrobials: Zosyn 03/06 Vanco Previous Antimicrobials: Objective - Exam Narrative Exam: General appearance: Alert in NAD, conversant Eyes: anicteric sclerae, moist conjunctivae; no lid-lag; PERRLA HENT: Atraumatic; oropharynx clear Neck: Trachea midline; supple, no thyromegaly or lymphadenopathy Lungs: CTA, with normal respiratory effort and no intercostal retractions CV: shaneka Abdomen: Soft, non-tender Extremities: christelle leg edema, + leg ulcer Skin: christelle leg chronic discoloration Psych: Appropriate affect, alert and oriented to person, place and time. Neuro: alert and oriented x 3. paraplegic Lines: fem line - Constitutional Vitals: Vital Signs Temp Pulse Resp BP Pulse Ox 98.6 F 107 H 93 H 143/67 98 03/09/17 07:55 03/09/17 09:16 03/09/17 07:55 03/09/17 07:55 03/09/17 07:55 Temperature -Last 24 Hours Temperature 98.6 F Temperature 97.9 F Temperature 98.6 F Temperature 98.6 F Temperature 98.1 F - Labs CBC & Chem 7: 03/07/17 04:58 03/08/17 10:52 Labs: Abnormal lab results 03/07/17 03/08/17 03/08/17 Range/Units 15:55 16:12 22:09 POC Glucose 137 H 138 H 182 H (70-105) Vancomycin Trough (5.0-20.0) ug/mL 03/09/17 03/09/17 03/09/17 Range/Units 07:21 09:51 11:53 POC Glucose 110 H 126 H (70-105) Vancomycin Trough 21.0 H (5.0-20.0) ug/mL
[2017-03-09] MEDS: NORVASC PO SCH (13:39)
--- NOTE | 2017-03-09 14:51 | Progress Note ---
Assessment and Plan / Sepsis due to bacteremia and UTI Started on Zosyn and Vancomycin ID consult requsted for ABx Coverage Patient has indwelling santos catheter which is has changed in the ER blood cx growing Enterococcus, stopped vancomycin /septic shock: Sec to sepsis IV NS boluses given in the ER and placed on levophed. Off levophed since 03/07/17 /Lactic acidosis Sec to Sepsis, trended down / UTI (urinary tract infection) follow Blood and urine cultures On Zosyn /Decubital ulcer Wound care requested /Paraplegia Patient dependent on Nurses for ADL's and not getting Home visits regularly. Suggested SNF but patient refuses vehemently. Family wants SNF but Patient has to decide for himself /COPD (chronic obstructive pulmonary disease) Duonebs prn /Stasis dermatitis of both legs wound care /DVT prophylaxis on Lovenox Brief history: 60 years old male with history of HTN, COPD, DM, CHF, paraplegic due to C spine injury while in [employer] around 1975 with chronic indweling santos, admitted on 03/06/2017 due to generalized weakness, lethargy of unknown duration. EMS found him lethargic with a BP of 70/30 and HR of 50 bpm after receiving 0.5 of atropine. He was placed on levophed and admitted to ICU. Radiological test: CXR - no infiltrates abdominal US - no ascitis Hospitalist Physical exam: GENERAL: well-developed and well-nourished lying on bed appeared to be in no discomfort. HEENT: Normocephalic. Atraumatic. No conjunctival congestion or icterus. Patient has moist mucous membranes. NECK: Supple. Trachea midline. CHEST/LUNGS: Clear to auscultated bilaterally, breathing nonlabored. No wheezes crackles or rhonchi. HEART/CARDIOVASCULAR: Regular in rate and rhythm. S1 and S2 positive. ABDOMEN: Abdomen is soft, nontender. Patient has normal bowel sounds. SKIN: b/l LE skin discoloration. Warm and dry. NEURO: paraplegic. Follows command. MUSCULOSKELETAL: No joint effusion or tenderness. EXTRIMITY: pulses symmetrical, No edema, abnormal (Ulcer -superficial ulcer healing on LLE lateral aspect of leg 10 inches above ankle) PSYCH: Cooperative. Subjective Date of service: 03/09/17 Interval history: Patient seen and examined. Medical records and medication list reviewed. No acute event overnight noted by the RN. Patient denies any chest pain or difficulty breathing. Discussed plan of care at bedside with patient. Objective - Constitutional Vitals: Vital Signs - 12hr 03/09/17 03/09/17 03/09/17 04:04 07:55 09:16 Temperature 97.9 F 98.6 F Pulse Rate 81 91 H 107 H Respiratory 20 93 H Rate Blood Pressure 148/68 143/67 O2 Sat by Pulse 95 98 Oximetry 03/09/17 03/09/17 12:53 13:39 Temperature 98.2 F Pulse Rate 85 85 Respiratory 18 Rate Blood Pressure 141/66 141/66 O2 Sat by Pulse 96 Oximetry - Labs CBC & Chem 7: 03/07/17 04:58 03/08/17 10:52 Labs: Abnormal lab results 03/07/17 03/08/17 03/08/17 Range/Units 15:55 16:12 22:09 POC Glucose 137 H 138 H 182 H (70-105) Vancomycin Trough (5.0-20.0) ug/mL 03/09/17 03/09/17 03/09/17 Range/Units 07:21 09:51 11:53 POC Glucose 110 H 126 H (70-105) Vancomycin Trough 21.0 H (5.0-20.0) ug/mL
[2017-03-10] MEDS: ZOSYN/NS 4.5GM/100ML 4.5 GM/100 ML VIAL IV SCH ×3 (06:30→22:20)
[2017-03-10] MEDS: NORVASC PO SCH (09:38)
[2017-03-10] MEDS: PEPCID PO SCH ×2 (09:40→22:25)
[2017-03-10] MEDS: PERCOCET 5/325 PO PRN (09:41)
--- NOTE | 2017-03-10 12:26 | Progress Note ---
Assessment and Plan Assessment: 1) Sepsis with initial septic shock: better. Etiology most likely UTI / bacteremia 2) CA-UTI: pt with chronic indwelling cath and right non obstructive kidney stones -Urine cx >100 K mixed bacteria 3) Enterococcus durans septicemia: from UTI ? TTE no vegetations. 4) Neurogenic bladder with chronic santos 5) Sacral decubitus - 6) Paraplegia Plan: -f/u repeat blood cultures -stop zosyn -start unasyn 3 g IV q 6 hours -obtain C-reactive protein (CRP) -upon discharge will do unasyn 3 g IV q 6 hours total 2 weeks from 03/06 until 03/19 -will place a PICC Thank you Dr Tee for your consultation, will follow up with you. Genny Granados MD Infectious Diseases Specialist [facility] ([facility]) M [phone] O [phone] Subjective Date of service: 03/10/17 Principal diagnosis: sepsis/UTI Interval history: Feels better, wants to go home [place]. No fever Microbiology: Blood cultures: 03/06 Enterococcus bustos 4 of 4 03/09 ngtd Urine cultures: 03/06 >100 mixed bacteria Respiratory cultures: Current Antimicrobials: Zosyn 03/06 Vanco Previous Antimicrobials: Objective - Constitutional Vitals: Vital Signs Temp Pulse Resp BP Pulse Ox 98.2 F 74 20 138/55 96 03/10/17 04:36 03/10/17 12:15 03/10/17 04:36 03/10/17 09:38 03/10/17 04:36 Temperature -Last 24 Hours Temperature 98.2 F Temperature 97.8 F Temperature 98.5 F Temperature 98.4 F Temperature 98.2 F - Labs CBC & Chem 7: 03/07/17 04:58 03/08/17 10:52 Labs: Abnormal lab results 03/09/17 Range/Units 17:39 POC Glucose 124 H (70-105)
--- NOTE | 2017-03-10 13:06 | Progress Note ---
Assessment and Plan / Sepsis due to bacteremia and UTI Started on Zosyn and Vancomycin following admission ID consult requsted for ABx Coverage Patient has indwelling santos catheter which is has changed in the ER blood cx growing Enterococcus durans, stopped vancomycin and zosyn TTE showed no vegetations. started on unasyn 3 g IV q 6 hours, upon discharge will need unasyn 3 g IV q 6 hours total 2 weeks from 03/06 until 03/19 -ordered a PICC line /septic shock: Sec to sepsis IV NS boluses given in the ER and placed on levophed. Off levophed since 03/07/17 /Lactic acidosis Sec to Sepsis, trended down / UTI (urinary tract infection) follow Blood and urine cultures On Zosyn /Decubital ulcer Wound care following /Paraplegia Patient dependent on Nurses for ADL's and not getting Home visits regularly. Suggested SNF but patient refuses Family wants SNF but Patient has to decide for himself /COPD (chronic obstructive pulmonary disease) Duonebs prn /Stasis dermatitis of both legs wound care /DVT prophylaxis on Lovenox Brief history: 60 years old male with history of HTN, COPD, DM, CHF, paraplegic due to C spine injury while in [employer] around 1975 with chronic indweling santos, admitted on 03/06/2017 due to generalized weakness, lethargy of unknown duration. EMS found him lethargic with a BP of 70/30 and HR of 50 bpm after receiving 0.5 of atropine. He was placed on levophed and admitted to ICU. Radiological test: CXR - no infiltrates abdominal US - no ascitis Hospitalist Physical exam: GENERAL: well-developed and well-nourished lying on bed appeared to be in no discomfort. HEENT: Normocephalic. Atraumatic. No conjunctival congestion or icterus. Patient has moist mucous membranes. NECK: Supple. Trachea midline. CHEST/LUNGS: Clear to auscultated bilaterally, breathing nonlabored. No wheezes crackles or rhonchi. HEART/CARDIOVASCULAR: Regular in rate and rhythm. S1 and S2 positive. ABDOMEN: Abdomen is soft, nontender. Patient has normal bowel sounds. SKIN: b/l LE skin discoloration. Warm and dry. NEURO: paraplegic. Follows command. MUSCULOSKELETAL: No joint effusion or tenderness. EXTRIMITY: pulses symmetrical, No edema, abnormal (Ulcer -superficial ulcer healing on LLE lateral aspect of leg 10 inches above ankle) PSYCH: Cooperative. Subjective Date of service: 03/10/17 Principal diagnosis: sepsis/UTI Interval history: Patient seen and examined. Medical records and medication list reviewed. No acute event overnight noted by the RN. Patient denies any chest pain or difficulty breathing. Discussed plan of care at bedside with patient. wants to go home Objective - Constitutional Vitals: Vital Signs - 12hr 03/10/17 03/10/17 03/10/17 04:36 09:38 12:15 Temperature 98.2 F Pulse Rate 87 86 74 Respiratory 20 Rate Blood Pressure 161/75 138/55 O2 Sat by Pulse 96 Oximetry - Labs CBC & Chem 7: 03/07/17 04:58 03/08/17 10:52 Labs: Abnormal lab results 03/09/17 Range/Units 17:39 POC Glucose 124 H (70-105)
[2017-03-11] MEDS: ZOSYN/NS 4.5GM/100ML 4.5 GM/100 ML VIAL IV SCH (06:30)
[2017-03-11] MEDS: NORVASC PO SCH (10:11)
[2017-03-11] MEDS: PEPCID PO SCH ×2 (10:11→22:50)
[2017-03-11] MEDS ORDERED: UNASYN/NS 3 GM/100 ML 3 GM/100 ML BAG IV SCH (12:00)
[2017-03-11] MEDS ORDERED: UNASYN IV SCH (12:00)
--- NOTE | 2017-03-11 15:23 | Progress Note ---
Assessment and Plan / Sepsis due to bacteremia and UTI Started on Zosyn and Vancomycin following admission ID consult requsted for ABx Coverage Patient has indwelling santos catheter which is has changed in the ER blood cx growing Enterococcus durans, stopped vancomycin and zosyn TTE showed no vegetations. started on unasyn 3 g IV q 6 hours, upon discharge will need unasyn 3 g IV q 6 hours total 2 weeks from 03/06 until 03/19 -ordered a PICC line /septic shock: Sec to sepsis IV NS boluses given in the ER and placed on levophed. Off levophed since 03/07/17 /Lactic acidosis Sec to Sepsis, trended down / UTI (urinary tract infection) follow Blood and urine cultures On unasyn /Decubital ulcer Wound care following /Paraplegia Patient dependent on Nurses for ADL's and gets Home visits regularly. Suggested SNF previously but patient refuses /COPD (chronic obstructive pulmonary disease) Duonebs prn /Stasis dermatitis of both legs wound care /DVT prophylaxis on Lovenox Brief history: 60 years old male with history of HTN, COPD, DM, CHF, paraplegic due to C spine injury while in [employer] around 1975 with chronic indweling santos, admitted on 03/06/2017 due to generalized weakness, lethargy of unknown duration. EMS found him lethargic with a BP of 70/30 and HR of 50 bpm after receiving 0.5 of atropine. He was placed on levophed and admitted to ICU. Radiological test: CXR - no infiltrates abdominal US - no ascitis Microbiology 03/09/17 10:30 Peripheral/Venous Blood Culture - Preliminary NO GROWTH AFTER 48 HOURS 03/09/17 10:30 Peripheral/Venous Blood Culture - Preliminary NO GROWTH AFTER 48 HOURS 03/06/17 13:59 Peripheral/Venous Blood Culture - Final Enterococcus Durans/Hirae 03/06/17 13:59 Peripheral/Venous Blood Culture - Final Enterococcus Durans/Hirae 03/06/17 13:21 Urine,Catheterized - Indwelling Catheter Urine Culture - Final Hospitalist Physical exam: GENERAL: well-developed and well-nourished lying on bed appeared to be in no discomfort. HEENT: Normocephalic. Atraumatic. No conjunctival congestion or icterus. Patient has moist mucous membranes. NECK: Supple. Trachea midline. CHEST/LUNGS: Clear to auscultated bilaterally, breathing nonlabored. No wheezes crackles or rhonchi. HEART/CARDIOVASCULAR: Regular in rate and rhythm. S1 and S2 positive. ABDOMEN: Abdomen is soft, nontender. Patient has normal bowel sounds. SKIN: b/l LE skin discoloration. Warm and dry. NEURO: paraplegic. Follows command. MUSCULOSKELETAL: No joint effusion or tenderness. EXTRIMITY: pulses symmetrical, No edema, abnormal (Ulcer -superficial ulcer healing on LLE lateral aspect of leg 10 inches above ankle) PSYCH: not Cooperative. Subjective Date of service: 03/11/17 Principal diagnosis: sepsis/UTI Interval history: Patient seen and examined. Medical records and medication list reviewed. No acute event overnight noted by the RN. Discussed plan of care at bedside with patient multiple times but he wants to go home. He states that he does not know why he is still here, he does not appears to be confused but being difficult. He believes that he can manage iv abx at home by himself. Discussed with patient's sister and she wants [facility] placement to complete abx , Objective - Constitutional Vitals: Vital Signs - 12hr 03/11/17 05:52 Temperature 98.4 F Pulse Rate 68 Respiratory 23 Rate Blood Pressure 156/60 O2 Sat by Pulse 94 Oximetry - Labs CBC & Chem 7: 03/07/17 04:58 03/08/17 10:52 Labs: Abnormal lab results 03/10/17 03/10/17 03/10/17 Range/Units 08:01 12:37 16:59 POC Glucose 111 H 121 H 120 H (70-105) 03/10/17 Range/Units 21:50 POC Glucose 209 H (70-105)
[2017-03-11] MEDS: PERCOCET 5/325 PO PRN (15:25)
[2017-03-11] MEDS: UNASYN/NS 3 GM/100 ML 3 GM/100 ML BAG IV SCH ×2 (16:13→23:11)
[2017-03-12] MEDS: UNASYN/NS 3 GM/100 ML 3 GM/100 ML BAG IV SCH ×3 (04:50→18:51)
[2017-03-12 05:53] LABS: Basophils % (Auto) 0.6 % (0.0-1.8); Eosinophils % (Auto) 1.2 % (0.0-4.3); Hematocrit 35.5 % (35.5-45.6); Hemoglobin 12.1 gm/dl (11.8-15.2); Mean Corpuscular HGB Conc 34 % (32-34); Mean Corpuscular Hemoglobin 33 pg (28-32); Mean Corpuscular Volume 98 fl (84-94); Red Blood Count 3.63 M/mm3 (3.65-5.03); Red Cell Distribution Width 14.1 % (13.2-15.2); White Blood Count 6.3 K/mm3 (4.5-11.0)
[2017-03-12 06:07] LABS: Anion Gap 14 mmol/L; BUN/Creatinine Ratio 4; Blood Urea Nitrogen 3 mg/dL (9-20); Carbon Dioxide 22 mmol/L (22-30); Chloride 107.1 mmol/L (98-107); Glucose 98 mg/dL (75-100); Potassium 3.1 mmol/L (3.6-5.0); Sodium 140 mmol/L (137-145)
[2017-03-12 06:18] LABS: Platelet Count 59 K/mm3 (140-440)
[2017-03-12] MEDS: PEPCID PO SCH ×2 (09:20→21:50)
[2017-03-12] MEDS: NORVASC PO SCH (09:21)
--- NOTE | 2017-03-12 11:36 | Progress Note ---
Assessment and Plan Assessment: 1) Sepsis with initial septic shock: better. Etiology most likely UTI / bacteremia. CRP=1.1 2) CA-UTI: pt with chronic indwelling cath and right non obstructive kidney stones -Urine cx >100 K mixed bacteria 3) Enterococcus durans septicemia: from UTI ? TTE no vegetations. 4) Neurogenic bladder with chronic santos 5) Sacral decubitus - 6) Paraplegia 7) Thrombocytopenia - unclear etiology ? Plan: -check viral hepatitis panel and consider Hem eval due to thrombocytopenia -continue unasyn 3 g IV q 6 hours -upon discharge will do unasyn 3 g IV q 6 hours OR daptomycin 6 mg/kg IV q day total 2 weeks from 03/06 until 03/19 -PIC Thank you Dr Tee for your consultation, will follow up with you. Genny Granados MD Infectious Diseases Specialist [facility] ([facility]) M [phone] O [phone] Subjective Date of service: 03/12/17 Principal diagnosis: sepsis/UTI Interval history: Feels ok frustrated, wants to go home so[place]. No fever Microbiology: Blood cultures: 03/06 Enterococcus bustos 4 of 4 03/09 ngtd Urine cultures: 03/06 >100 mixed bacteria Respiratory cultures: Current Antimicrobials: unasyn 03/11 Previous Antimicrobials: Zosyn 03/06 Vanco Objective - Exam Narrative Exam: General appearance: Alert in NAD, conversant Eyes: anicteric sclerae, moist conjunctivae; no lid-lag; PERRLA HENT: Atraumatic; oropharynx clear Neck: Trachea midline; supple, no thyromegaly or lymphadenopathy Lungs: CTA, with normal respiratory effort and no intercostal retractions CV: shaneka Abdomen: Soft, non-tender Extremities: christelle leg edema, + leg ulcer Skin: christelle leg chronic discoloration Psych: Appropriate affect, alert and oriented to person, place and time. Neuro: alert and oriented x 3. paraplegic Lines: fem line - Constitutional Vitals: Vital Signs Temp Pulse Resp BP Pulse Ox 98.7 F 77 18 151/73 97 03/12/17 04:53 03/12/17 09:21 03/12/17 04:53 03/12/17 09:21 03/12/17 04:53 Temperature -Last 24 Hours Temperature 98.7 F Temperature 98.4 F Temperature 97.9 F Temperature 98.0 F Temperature 97.9 F - Labs CBC & Chem 7: 03/12/17 04:36 03/12/17 04:36 Labs: Abnormal lab results 03/11/17 03/11/17 03/11/17 Range/Units 09:45 12:10 21:16 RBC (3.65-5.03) M/mm3 MCV (84-94) fl MCH (28-32) pg Plt Count (140-440) K/mm3 Lymph % (Auto) (13.4-35.0) % [place] % (Auto) (0.0-7.3) % Potassium (3.6-5.0) mmol/L Chloride (98-107) mmol/L BUN (9-20) mg/dL POC Glucose 108 H 177 H 151 H (70-105) Calcium (8.4-10.2) mg/dL 03/12/17 03/12/17 Range/Units 04:36 04:36 RBC 3.63 L (3.65-5.03) M/mm3 MCV 98 H (84-94) fl MCH 33 H (28-32) pg Plt Count 59 L (140-440) K/mm3 Lymph % (Auto) 36.9 H (13.4-35.0) % [place] % (Auto) 7.5 H (0.0-7.3) % Potassium 3.1 L (3.6-5.0) mmol/L Chloride 107.1 H (98-107) mmol/L BUN 3 L (9-20) mg/dL POC Glucose (70-105) Calcium 8.0 L (8.4-10.2) mg/dL
--- NOTE | 2017-03-12 18:12 | Progress Note ---
Assessment and Plan - Sepsis due to bacteremia and UTI On Unisyn ID consult requsted for ABx Coverage Patient has indwelling santos catheter which is has changed in the ER blood cx growing Enterococcus durans, stopped vancomycin and zosyn TTE showed no vegetations. -ordered a PICC line. No place because of thrombocytopenia of 59,000. Discuss with PICC line nurse. Advised to proceed with a PICC line placement - Septic shock: Sec to sepsis IV NS boluses given in the ER and placed on levophed. Off levophed since 03/07/17 - Lactic acidosis Sec to Sepsis, trended down - UTI (urinary tract infection): has indwelling Santos's POA follow Blood and urine cultures On unasyn - Decubital ulcer Wound care following - Paraplegia Patient dependent on Nurses for ADL's and gets Home visits regularly. Suggested SNF previously but patient refuses - COPD (chronic obstructive pulmonary disease) Duonebs prn - Hypokalemia: Will Supplement - Stasis dermatitis of both legs wound care - DVT prophylaxis on Lovenox Subjective Date of service: 03/12/17 Principal diagnosis: sepsis/UTI Interval history: Patient seen and examined, consulted with patient. No overnight event reported. Patient denies any fever, shortness of breath nausea vomiting. Reviewed laboratory data as well as consultants notes Objective - Constitutional Vitals: Vital Signs - 12hr 03/12/17 09:21 Pulse Rate 77 Blood Pressure 151/73 General appearance: Present: no acute distress, well-nourished - EENT Eyes: PERRL, EOM intact - Neck Neck: supple, normal ROM - Respiratory Respiratory effort: normal Respiratory: bilateral: diminished - Cardiovascular Rhythm: regular Heart Sounds: Present: S1 & S2. Absent: gallop, rub Extremities: pulses intact, No edema, normal color, Full ROM - Gastrointestinal General gastrointestinal: Present: soft, non-tender, non-distended, normal bowel sounds - Integumentary Integumentary: clear, warm, dry - Musculoskeletal Musculoskeletal: 1, strength equal bilaterally - Neurologic Neurologic: focal deficits (right-sided hemiplegia) - Psychiatric Psychiatric: intact judgment & insight, memory intact, depressed - Labs CBC & Chem 7: 03/12/17 04:36 03/12/17 04:36 Labs: Abnormal lab results 03/11/17 03/11/17 03/11/17 Range/Units 09:45 12:10 21:16 RBC (3.65-5.03) M/mm3 MCV (84-94) fl MCH (28-32) pg Plt Count (140-440) K/mm3 Lymph % (Auto) (13.4-35.0) % [place] % (Auto) (0.0-7.3) % Potassium (3.6-5.0) mmol/L Chloride (98-107) mmol/L BUN (9-20) mg/dL POC Glucose 108 H 177 H 151 H (70-105) Calcium (8.4-10.2) mg/dL 03/12/17 03/12/17 03/12/17 Range/Units 04:36 04:36 08:13 RBC 3.63 L (3.65-5.03) M/mm3 MCV 98 H (84-94) fl MCH 33 H (28-32) pg Plt Count 59 L (140-440) K/mm3 Lymph % (Auto) 36.9 H (13.4-35.0) % [place] % (Auto) 7.5 H (0.0-7.3) % Potassium 3.1 L (3.6-5.0) mmol/L Chloride 107.1 H (98-107) mmol/L BUN 3 L (9-20) mg/dL POC Glucose 116 H (70-105) Calcium 8.0 L (8.4-10.2) mg/dL 03/12/17 03/12/17 Range/Units 13:31 15:42 RBC (3.65-5.03) M/mm3 MCV (84-94) fl MCH (28-32) pg Plt Count (140-440) K/mm3 Lymph % (Auto) (13.4-35.0) % [place] % (Auto) (0.0-7.3) % Potassium (3.6-5.0) mmol/L Chloride (98-107) mmol/L BUN (9-20) mg/dL POC Glucose 111 H 119 H (70-105) Calcium (8.4-10.2) mg/dL
[2017-03-12] MEDS ORDERED: KCL 20MEQ/100ML 20 MEQ/100 ML BAG IV ONE ×2 (18:16→19:00)
[2017-03-12] MEDS: PERCOCET 5/325 PO PRN (21:50)
[2017-03-13] MEDS: UNASYN/NS 3 GM/100 ML 3 GM/100 ML BAG IV SCH ×5 (00:01→22:06)
[2017-03-13 06:03] LABS: Basophils % (Auto) 0.5 % (0.0-1.8); Eosinophils % (Auto) 1.1 % (0.0-4.3); Hematocrit 35.4 % (35.5-45.6); Hemoglobin 11.8 gm/dl (11.8-15.2); Mean Corpuscular HGB Conc 33 % (32-34); Mean Corpuscular Hemoglobin 32 pg (28-32); Mean Corpuscular Volume 97 fl (84-94); Red Blood Count 3.64 M/mm3 (3.65-5.03); Red Cell Distribution Width 13.8 % (13.2-15.2); White Blood Count 7.2 K/mm3 (4.5-11.0)
[2017-03-13 06:29] LABS: Alanine Aminotransferase 10 units/L (7-56); Albumin 2.3 g/dL (3.9-5); Albumin/Globulin Ratio 0.5 %; Alkaline Phosphatase 95 units/L (35-129); Anion Gap 14 mmol/L; BUN/Creatinine Ratio 3; Blood Urea Nitrogen 2 mg/dL (9-20); Calcium 8.2 mg/dL (8.4-10.2); Carbon Dioxide 23 mmol/L (22-30); Chloride 106.7 mmol/L (98-107); Glucose 97 mg/dL (75-100); Potassium 3.1 mmol/L (3.6-5.0); Sodium 141 mmol/L (137-145); Total Protein 7.2 g/dL (6.3-8.2)
[2017-03-13] MEDS: PERCOCET 5/325 PO PRN (06:31)
[2017-03-13 06:34] LABS: Platelet Count 64 K/mm3 (140-440)
[2017-03-13] MEDS: PEPCID PO SCH ×2 (10:03→21:29)
[2017-03-13] MEDS: NORVASC PO SCH (10:03)
--- NOTE | 2017-03-13 10:16 | XRay Report ---
AP CHEST: HISTORY: PICC placement AP view of the chest demonstrates a normal mediastinal and cardiac contour with clear lungs and normal bony and soft tissue structures. Right PICC terminates at the cavoatrial junction. IMPRESSION: Unremarkable AP chest. Adequate placement of the right arm PICC.
--- NOTE | 2017-03-13 10:46 | Progress Note ---
Assessment and Plan Assessment: 1) Sepsis with initial septic shock: better. Etiology most likely UTI / bacteremia. CRP=1.1 2) CA-UTI: pt with chronic indwelling cath and right non obstructive kidney stones -Urine cx >100 K mixed bacteria 3) Enterococcus durans septicemia: from UTI ? TTE no vegetations. 4) Neurogenic bladder with chronic santos 5) Sacral decubitus - 6) Paraplegia 7) Thrombocytopenia - unclear etiology ? Plan: -check viral hepatitis panel and consider Hem eval due to thrombocytopenia -continue unasyn 3 g IV q 6 hours -upon discharge will do unasyn 3 g IV q 6 hours OR (for easier administratin) daptomycin 6 mg/kg IV q day total 2 weeks from 03/06 until 03/19 -PICC Thank you Dr Tee for your consultation, will follow up with you. Genny Granados MD Infectious Diseases Specialist [facility] ([facility]) M [phone] O [phone] Subjective Date of service: 03/13/17 Principal diagnosis: sepsis/UTI Interval history: Feels ok no fever Microbiology: Blood cultures: 03/06 Enterococcus bustos 4 of 4 03/09 ngtd Urine cultures: 03/06 >100 mixed bacteria Respiratory cultures: Current Antimicrobials: unasyn 03/11 Previous Antimicrobials: Zosyn 03/06 Vanco Objective - Exam Narrative Exam: General appearance: Alert in NAD, conversant Eyes: anicteric sclerae, moist conjunctivae; no lid-lag; PERRLA HENT: Atraumatic; oropharynx clear Neck: Trachea midline; supple, no thyromegaly or lymphadenopathy Lungs: CTA, with normal respiratory effort and no intercostal retractions CV: shaneka Abdomen: Soft, non-tender Extremities: christelle leg edema, + leg ulcer Skin: christelle leg chronic discoloration Psych: Appropriate affect, alert and oriented to person, place and time. Neuro: alert and oriented x 3. paraplegic Lines: fem line - Constitutional Vitals: Vital Signs Temp Pulse Resp BP Pulse Ox 98.8 F 73 23 156/71 95 03/13/17 05:29 03/13/17 05:29 03/13/17 05:29 03/13/17 05:29 03/13/17 05:29 Temperature -Last 24 Hours Temperature 98.8 F Temperature 98.5 F Temperature 98.2 F Temperature 98.3 F - Labs CBC & Chem 7: 03/13/17 04:45 03/13/17 04:45 Labs: Abnormal lab results 03/12/17 03/12/17 03/12/17 Range/Units 08:13 13:31 15:42 RBC (3.65-5.03) M/mm3 Hct (35.5-45.6) % MCV (84-94) fl Plt Count (140-440) K/mm3 Lymph % (Auto) (13.4-35.0) % [place] % (Auto) (0.0-7.3) % Potassium (3.6-5.0) mmol/L BUN (9-20) mg/dL POC Glucose 116 H 111 H 119 H (70-105) Calcium (8.4-10.2) mg/dL Phosphorus (2.5-4.5) mg/dL Magnesium (1.7-2.3) mg/dL Albumin (3.9-5) g/dL 03/12/17 03/13/17 03/13/17 Range/Units 20:55 04:45 04:45 RBC 3.64 L (3.65-5.03) M/mm3 Hct 35.4 L (35.5-45.6) % MCV 97 H (84-94) fl Plt Count 64 L (140-440) K/mm3 Lymph % (Auto) 37.0 H (13.4-35.0) % [place] % (Auto) 7.8 H (0.0-7.3) % Potassium 3.1 L (3.6-5.0) mmol/L BUN 2 L (9-20) mg/dL POC Glucose 140 H (70-105) Calcium 8.2 L (8.4-10.2) mg/dL Phosphorus 2.20 L (2.5-4.5) mg/dL Magnesium 1.60 L (1.7-2.3) mg/dL Albumin 2.3 L (3.9-5) g/dL
--- NOTE | 2017-03-13 11:14 | Progress Note ---
Assessment and Plan Assessment and plan: This is a 62 year-old male, presents to the emergency department via EMS with a complaint of malaise Debility unable to care for himself, needs placement -awaiting placement, continue PT - Sepsis due to bacteremia and UTI On Unisyn ID consult requsted for ABx Coverage Patient has indwelling santos catheter which is has changed in the ER blood cx growing Enterococcus durans, continue Abx, case discussed with ID TTE showed no vegetations. * Enterococcus Bactermia to be transfered to [facility] to complete his Abx - Septic shock: Sec to sepsis IV NS boluses given in the ER and placed on levophed. Off levophed since 03/07/17 - Lactic acidosis Sec to Sepsis, trended down - UTI (urinary tract infection): has indwelling Santos's POA - Decubital ulcer Wound care following - Paraplegia Patient dependent on Nurses for ADL's and gets Home visits regularly. Suggested SNF previously but patient refuses - COPD (chronic obstructive pulmonary disease) not in exacerbation Duonebs prn - Hypokalemia: Supplemented - Stasis dermatitis of both legs wound care - DVT prophylaxis on Lovenox History Interval history: Review of systems Constitutional: No fevers, no malaise, no joint pains CVS: No chest pain, no orthopnea, no dyspnea on exertion, no pedal edema GI: No abdominal pain, no diarrhea, no vomiting, no constipation Respiratory: No shortness of breath, no wheezing, no coughing Hospitalist Physical - Physical exam Narrative exam: General.: Appears well, no distress, nontoxic HEENT: Moist mucous membranes, extraocular muscles intact, no lymphadenopathy Neck: supple Cardiac: S1-S2 heard Lungs: clear to auscultation bilaterally Abdomen: soft , nontender, nondistended, bowel sounds positive Extremities: no edema clubbing or cyanosis Skin: no rash or lesions Neurologic: paraplegic Psych: appropriate behavior, appropriate mood, corporative, judgment intact - Constitutional Vitals: Temp Pulse Resp BP Pulse Ox 98.8 F 73 23 156/71 95 03/13/17 05:29 03/13/17 05:29 03/13/17 05:29 03/13/17 05:29 03/13/17 05:29 General appearance: Present: no acute distress, well-nourished Results - Labs CBC & Chem 7: 03/13/17 04:45 03/13/17 04:45 Labs: Laboratory Last Values WBC 7.2 K/mm3 (4.5-11.0) 03/13/17 04:45 RBC 3.64 M/mm3 (3.65-5.03) L 03/13/17 04:45 Hgb 11.8 gm/dl (11.8-15.2) 03/13/17 04:45 Hct 35.4 % (35.5-45.6) L 03/13/17 04:45 MCV 97 fl (84-94) H 03/13/17 04:45 MCH 32 pg (28-32) 03/13/17 04:45 MCHC 33 % (32-34) 03/13/17 04:45 RDW 13.8 % (13.2-15.2) 03/13/17 04:45 Plt Count 64 K/mm3 (140-440) L 03/13/17 04:45 Lymph % (Auto) 37.0 % (13.4-35.0) H 03/13/17 04:45 [place] % (Auto) 7.8 % (0.0-7.3) H 03/13/17 04:45 Eos % (Auto) 1.1 % (0.0-4.3) 03/13/17 04:45 Baso % (Auto) 0.5 % (0.0-1.8) 03/13/17 04:45 Lymph # 2.7 K/mm3 (1.2-5.4) 03/13/17 04:45 [place] # 0.6 K/mm3 (0.0-0.8) 03/13/17 04:45 Eos # 0.1 K/mm3 (0.0-0.4) 03/13/17 04:45 Baso # 0.0 K/mm3 (0.0-0.1) 03/13/17 04:45 Seg Neutrophils % 53.6 % (40.0-70.0) 03/13/17 04:45 Seg Neutrophils # 3.9 K/mm3 (1.8-7.7) 03/13/17 04:45 PT 18.2 Sec. (12.2-14.9) H 03/06/17 13:20 INR 1.43 (0.87-1.13) H 03/06/17 13:20 VBG pH 7.397 (7.320-7.420) 03/06/17 13:20 Sodium 141 mmol/L (137-145) 03/13/17 04:45 Potassium 3.1 mmol/L (3.6-5.0) L 03/13/17 04:45 Chloride 106.7 mmol/L (98-107) 03/13/17 04:45 Carbon Dioxide 23 mmol/L (22-30) 03/13/17 04:45 Anion Gap 14 mmol/L 03/13/17 04:45 BUN 2 mg/dL (9-20) L 03/13/17 04:45 Creatinine 0.8 mg/dL (0.8-1.5) 03/13/17 04:45 Estimated GFR > 60 ml/min 03/13/17 04:45 BUN/Creatinine Ratio 3 % 03/13/17 04:45 Glucose 97 mg/dL (75-100) 03/13/17 04:45 POC Glucose 98 (70-105) 03/13/17 07:13 Lactic Acid 1.70 mmol/L (0.7-2.0) 03/08/17 17:35 Calcium 8.2 mg/dL (8.4-10.2) L 03/13/17 04:45 Phosphorus 2.20 mg/dL (2.5-4.5) L 03/13/17 04:45 Magnesium 1.60 mg/dL (1.7-2.3) L 03/13/17 04:45 Total Bilirubin 1.20 mg/dL (0.1-1.2) 03/13/17 04:45 AST 27 units/L (5-40) 03/13/17 04:45 ALT 10 units/L (7-56) 03/13/17 04:45 Alkaline Phosphatase 95 units/L (35-129) 03/13/17 04:45 C-Reactive Protein 1.10 mg/dL (0.00-1.30) 03/10/17 14:50 Total Protein 7.2 g/dL (6.3-8.2) 03/13/17 04:45 Albumin 2.3 g/dL (3.9-5) L 03/13/17 04:45 Albumin/Globulin Ratio 0.5 % 03/13/17 04:45 Urine Color Red (Yellow) 03/06/17 13:21 Urine Turbidity Clear (Clear) 03/06/17 13:21 Urine pH 6.0 (5.0-7.0) 03/06/17 13:21 Ur Specific [place] 1.014 (1.003-1.030) 03/06/17 13:21 Urine Protein 100 mg/dl mg/dL (Negative) 03/06/17 13:21 Urine Glucose (UA) Neg mg/dL (Negative) 03/06/17 13:21 Urine Ketones Neg mg/dL (Negative) 03/06/17 13:21 Urine Blood Lg (Negative) 03/06/17 13:21 Urine Nitrite Neg (Negative) 03/06/17 13:21 Urine Bilirubin Neg (Negative) 03/06/17 13:21 Urine Urobilinogen 4.0 mg/dL (<2.0) 03/06/17 13:21 Ur Leukocyte Esterase Mod (Negative) 03/06/17 13:21 Urine WBC (Auto) > 182.0 /HPF (0.0-6.0) H 03/06/17 13:21 Urine RBC (Auto) > 182.0 /HPF (0.0-6.0) 03/06/17 13:21 U Epithel Cells (Auto) 2.0 /HPF (0-13.0) 03/06/17 13:21 Urine Bacteria (Auto) 4+ /HPF (Negative) 03/06/17 13:21 Urine WBC Clumps 3+ /HPF 03/06/17 13:21 Urine Mucus 1+ /HPF 03/06/17 13:21 Vancomycin Trough 21.0 ug/mL (5.0-20.0) H 03/09/17 09:51
[2017-03-14] MEDS: UNASYN/NS 3 GM/100 ML 3 GM/100 ML BAG IV SCH ×4 (04:34→23:44)
[2017-03-14] MEDS: NORVASC PO SCH (09:32)
[2017-03-14] MEDS: PEPCID PO SCH ×2 (09:33→21:32)
--- NOTE | 2017-03-14 09:35 | Progress Note ---
Assessment and Plan Assessment and plan: This is a 62 year-old male, presents to the emergency department via EMS with a complaint of malaise Debility unable to care for himself, needs placement -awaiting placement, continue PT - Sepsis due to bacteremia and UTI On Unisyn ID consult requsted for ABx Coverage Patient has indwelling santos catheter which is has changed in the ER blood cx growing Enterococcus durans, continue Abx, case discussed with ID TTE showed no vegetations. * Enterococcus Bactermia to be transfered to [facility] to complete his Abx - Septic shock: Sec to sepsis IV NS boluses given in the ER and placed on levophed. Off levophed since 03/07/17 - Lactic acidosis Sec to Sepsis, trended down - UTI (urinary tract infection): has indwelling Santos's POA - Decubital ulcer Wound care following - Paraplegia Patient dependent on Nurses for ADL's and gets Home visits regularly. Suggested SNF previously but patient refuses - COPD (chronic obstructive pulmonary disease) not in exacerbation Duonebs prn - Hypokalemia: Supplemented - Stasis dermatitis of both legs wound care - DVT prophylaxis on Lovenox History Interval history: Review of systems Constitutional: No fevers, no malaise, no joint pains CVS: No chest pain, no orthopnea, no dyspnea on exertion, no pedal edema GI: No abdominal pain, no diarrhea, no vomiting, no constipation Respiratory: No shortness of breath, no wheezing, no coughing Hospitalist Physical - Physical exam Narrative exam: General.: Appears well, no distress, nontoxic HEENT: Moist mucous membranes, extraocular muscles intact, no lymphadenopathy Neck: supple Cardiac: S1-S2 heard Lungs: clear to auscultation bilaterally Abdomen: soft , nontender, nondistended, bowel sounds positive Extremities: no edema clubbing or cyanosis Skin: no rash or lesions Neurologic: paraplegic Psych: appropriate behavior, appropriate mood, corporative, judgment intact - Constitutional Vitals: Temp Pulse Resp BP Pulse Ox 98.3 F 70 19 154/62 92 03/14/17 06:09 03/14/17 09:32 03/14/17 06:09 03/14/17 09:32 03/14/17 06:09 General appearance: Present: no acute distress, well-nourished Results - Labs CBC & Chem 7: 03/13/17 04:45 03/13/17 04:45 Labs: Laboratory Last Values WBC 7.2 K/mm3 (4.5-11.0) 03/13/17 04:45 RBC 3.64 M/mm3 (3.65-5.03) L 03/13/17 04:45 Hgb 11.8 gm/dl (11.8-15.2) 03/13/17 04:45 Hct 35.4 % (35.5-45.6) L 03/13/17 04:45 MCV 97 fl (84-94) H 03/13/17 04:45 MCH 32 pg (28-32) 03/13/17 04:45 MCHC 33 % (32-34) 03/13/17 04:45 RDW 13.8 % (13.2-15.2) 03/13/17 04:45 Plt Count 64 K/mm3 (140-440) L 03/13/17 04:45 Lymph % (Auto) 37.0 % (13.4-35.0) H 03/13/17 04:45 [place] % (Auto) 7.8 % (0.0-7.3) H 03/13/17 04:45 Eos % (Auto) 1.1 % (0.0-4.3) 03/13/17 04:45 Baso % (Auto) 0.5 % (0.0-1.8) 03/13/17 04:45 Lymph # 2.7 K/mm3 (1.2-5.4) 03/13/17 04:45 [place] # 0.6 K/mm3 (0.0-0.8) 03/13/17 04:45 Eos # 0.1 K/mm3 (0.0-0.4) 03/13/17 04:45 Baso # 0.0 K/mm3 (0.0-0.1) 03/13/17 04:45 Seg Neutrophils % 53.6 % (40.0-70.0) 03/13/17 04:45 Seg Neutrophils # 3.9 K/mm3 (1.8-7.7) 03/13/17 04:45 PT 18.2 Sec. (12.2-14.9) H 03/06/17 13:20 INR 1.43 (0.87-1.13) H 03/06/17 13:20 VBG pH 7.397 (7.320-7.420) 03/06/17 13:20 Sodium 141 mmol/L (137-145) 03/13/17 04:45 Potassium 3.1 mmol/L (3.6-5.0) L 03/13/17 04:45 Chloride 106.7 mmol/L (98-107) 03/13/17 04:45 Carbon Dioxide 23 mmol/L (22-30) 03/13/17 04:45 Anion Gap 14 mmol/L 03/13/17 04:45 BUN 2 mg/dL (9-20) L 03/13/17 04:45 Creatinine 0.8 mg/dL (0.8-1.5) 03/13/17 04:45 Estimated GFR > 60 ml/min 03/13/17 04:45 BUN/Creatinine Ratio 3 % 03/13/17 04:45 Glucose 97 mg/dL (75-100) 03/13/17 04:45 POC Glucose 126 (70-105) H 03/13/17 21:40 Lactic Acid 1.70 mmol/L (0.7-2.0) 03/08/17 17:35 Calcium 8.2 mg/dL (8.4-10.2) L 03/13/17 04:45 Phosphorus 2.20 mg/dL (2.5-4.5) L 03/13/17 04:45 Magnesium 1.60 mg/dL (1.7-2.3) L 03/13/17 04:45 Total Bilirubin 1.20 mg/dL (0.1-1.2) 03/13/17 04:45 AST 27 units/L (5-40) 03/13/17 04:45 ALT 10 units/L (7-56) 03/13/17 04:45 Alkaline Phosphatase 95 units/L (35-129) 03/13/17 04:45 C-Reactive Protein 1.10 mg/dL (0.00-1.30) 03/10/17 14:50 Total Protein 7.2 g/dL (6.3-8.2) 03/13/17 04:45 Albumin 2.3 g/dL (3.9-5) L 03/13/17 04:45 Albumin/Globulin Ratio 0.5 % 03/13/17 04:45 Urine Color Red (Yellow) 03/06/17 13:21 Urine Turbidity Clear (Clear) 03/06/17 13:21 Urine pH 6.0 (5.0-7.0) 03/06/17 13:21 Ur Specific [place] 1.014 (1.003-1.030) 03/06/17 13:21 Urine Protein 100 mg/dl mg/dL (Negative) 03/06/17 13:21 Urine Glucose (UA) Neg mg/dL (Negative) 03/06/17 13:21 Urine Ketones Neg mg/dL (Negative) 03/06/17 13:21 Urine Blood Lg (Negative) 03/06/17 13:21 Urine Nitrite Neg (Negative) 03/06/17 13:21 Urine Bilirubin Neg (Negative) 03/06/17 13:21 Urine Urobilinogen 4.0 mg/dL (<2.0) 03/06/17 13:21 Ur Leukocyte Esterase Mod (Negative) 03/06/17 13:21 Urine WBC (Auto) > 182.0 /HPF (0.0-6.0) H 03/06/17 13:21 Urine RBC (Auto) > 182.0 /HPF (0.0-6.0) 03/06/17 13:21 U Epithel Cells (Auto) 2.0 /HPF (0-13.0) 03/06/17 13:21 Urine Bacteria (Auto) 4+ /HPF (Negative) 03/06/17 13:21 Urine WBC Clumps 3+ /HPF 03/06/17 13:21 Urine Mucus 1+ /HPF 03/06/17 13:21 Vancomycin Trough 21.0 ug/mL (5.0-20.0) H 03/09/17 09:51 Hepatitis A IgM Ab Non-reactive (NonReactive) 03/13/17 11:42 Hep Bs Antigen Non-reactive (Negative) 03/13/17 11:42 Hep B Core IgM Ab Non-reactive (NonReactive) 03/13/17 11:42 Hepatitis C Antibody Reactive (NonReactive) A 03/13/17 11:42
--- NOTE | 2017-03-14 12:14 | Progress Note ---
Assessment and Plan Assessment: 1) Sepsis with initial septic shock: better. Etiology most likely UTI / bacteremia. CRP=1.1 2) CA-UTI: pt with chronic indwelling cath and right non obstructive kidney stones -Urine cx >100 K mixed bacteria 3) Enterococcus durans septicemia: from UTI ? TTE no vegetations. 4) Neurogenic bladder with chronic santos 5) Sacral decubitus - 6) Paraplegia 7) Thrombocytopenia - from Hep C 8) Chronic Hep C - per patient he was treated in the past ? Plan: -continue unasyn 3 g IV q 6 hours -upon discharge will do unasyn 3 g IV q 6 hours OR (for easier administratin) daptomycin 6 mg/kg IV q day total 2 weeks from 03/06 until 03/19 -PICC I am signing off Thank you Dr Manzano for your consultation, will follow up with you. Genny Granados MD Infectious Diseases Specialist [facility] ([facility]) M [phone] O [phone] Subjective Date of service: 03/14/17 Principal diagnosis: sepsis/UTI Interval history: Feels ok no fever Microbiology: Blood cultures: 03/06 Enterococcus bustos 4 of 4 03/09 ngtd Urine cultures: 03/06 >100 mixed bacteria Respiratory cultures: Current Antimicrobials: unasyn 03/11 Previous Antimicrobials: Zosyn 03/06 Vanco Objective - Exam Narrative Exam: General appearance: Alert in NAD, conversant Eyes: anicteric sclerae, moist conjunctivae; no lid-lag; PERRLA HENT: Atraumatic; oropharynx clear Neck: Trachea midline; supple, no thyromegaly or lymphadenopathy Lungs: CTA, with normal respiratory effort and no intercostal retractions CV: shaneka Abdomen: Soft, non-tender Extremities: christelle leg edema, + leg ulcer Skin: christelle leg chronic discoloration Psych: Appropriate affect, alert and oriented to person, place and time. Neuro: alert and oriented x 3. paraplegic Lines: PICC - Constitutional Vitals: Vital Signs Temp Pulse Resp BP Pulse Ox 98.3 F 70 19 154/62 92 03/14/17 06:09 03/14/17 09:32 03/14/17 06:09 03/14/17 09:32 03/14/17 08:06 Temperature -Last 24 Hours Temperature 98.3 F Temperature 98.6 F Temperature 98.5 F Temperature 98.0 F Temperature 98.0 F Temperature 98.2 F - Labs CBC & Chem 7: 03/13/17 04:45 03/13/17 04:45 Labs: Abnormal lab results 03/13/17 03/13/17 03/13/17 Range/Units 11:42 16:24 21:40 POC Glucose 118 H 126 H (70-105) Hepatitis C Antibody Reactive A (NonReactive)
[2017-03-15] MEDS: UNASYN/NS 3 GM/100 ML 3 GM/100 ML BAG IV SCH (05:42)
[2017-03-15 05:58] VITALS: BP 156/62
--- NOTE | 2017-03-15 08:59 | Discharge Summary ---
Providers - Providers Date of Admission: 03/06/17 16:15 Attending physician: VIKTORIA GAINES MD 03/06/17 17:25 Consult to Wound/ET Nurse [CONS] Routine Reason For Exam: wound eval 03/06/17 21:11 Consult to Physician [CONS] Routine Consulting Provider: GENNY COULTER Reason For Exam: sepsis Place consult to:: DR. Medina Notified:: yes 03/06/17 21:59 Consult to Physician [CONS] Urgent Consulting Provider: ARAMIS BOYER Reason For Exam: CCU admit Place consult to:: Dr. Aburto Notified:: no 03/07/17 08:21 Consult to Case Management [CONS] Routine Services Needed at Discharge: Home Health Services [place] Notified:: JANEE/ DAMIÁN Was contact made?: Yes Comment:: SNF advised but refuses Consult to Wound/ET Nurse [CONS] Routine Reason For Exam: wound eval 03/10/17 12:28 Consult to Case Management [CONS] Stat Services Needed at Discharge: Other Notified:: on call pharmacy technician Additional Phys[facility] Instructions[facility] Genny Medina MD M [phone] O [phone] OUTPATIENT PARENTERAL ANTIBIOTIC THERAPY ORDERS Diagnoses: Enterococcus septicemia / UTI Antimicrobial administration: unasyn 3 g IV q 6 hours total 2 weeks from 03/06 until 03/19 OR daptomycin 6 mg/kg IV q day total 2 weeks from until 03/19 Lines: Lab monitoring: CBC, CMP, CRP once a week preferly on Sunday morning. Please fax results to [phone] and call [phone] for critical lab results. Genny Medina Date: 03/10/17 Consult to PICC Line RN [CONS] Routine Reason For Exam: iv abx for 2 weeks Type Line:: PICC 03/11/17 19:50 Consult to Case Management [CONS] Urgent Services Needed at Discharge: DME Equipment Notified:: hog worker Additional Physician Instructions: The patient would like some kind of motorized wheelchair to be able to get out of bed while he is here. Would also need a yoly lift for getting out of bed. Primary care physician: MIGUEL CABEZAS Hospitalization Condition: Serious Hospital course: This is a 62 year-old male, presents to the emergency department via EMS with a complaint of malaise. He was found to have sepsis due to enterococcus durans bacteremia. He received ID consultation. He then received PICC line and IV antibiotics and is being discharged on a course of IV antibiotics. He initially presented with septic shock that he improves he was weaned off pressors. He received wound care for decubital ulcers and paraplegia. His electrolytes were repleted, and clinically improved and was discharged to [facility] Diagnosis Gram-positive septicemia UTI Severe sepsis/septic shock Debility Decubital ulcers, present on admission Paraplegia COPD, chronic non-exacerbation Disposition: [id number] IP Time spent for discharge: 33 minutes Core Measure Documentation - Palliative Care Palliative Care/ Comfort Measures: Not Applicable - Core Measures Any of the following diagnoses?: none Exam - Physical Exam Narrative exam: General.: Appears well, no distress, nontoxic HEENT: Moist mucous membranes, extraocular muscles intact, no lymphadenopathy Neck: supple Cardiac: S1-S2 heard Lungs: clear to auscultation bilaterally Abdomen: soft , nontender, nondistended, bowel sounds positive Extremities: no edema clubbing or cyanosis Skin: no rash or lesions Neurologic: paraplegic Psych: appropriate behavior, appropriate mood, corporative, judgment intact - Constitutional Vitals: Temp Pulse Resp BP Pulse Ox 97.9 F 72 18 156/62 97 03/15/17 05:18 03/15/17 05:18 03/15/17 05:18 03/15/17 05:18 03/15/17 05:18 Plan Follow up with: MIGUEL CABEZAS MD [Primary Care Provider] - 3-5 Days
== END 2017-03-15 07:38 | disposition short-term general hospital (02) | DRG 871 ==
LOC: ED 12:30 → 4A 16:15 → CC1 22:05 → 4A 03-07 20:37
PROVIDERS: ADMIT Internal Medicine; ATTEND Internal Medicine
PROC: 02HV33Z Insertion of Infusion Device into Superior Vena Cava, Percutaneous Approach (ICD-10-PCS; principal; 2017-03-13)
DX: A41.81 Sepsis due to Enterococcus (principal); R65.21 Severe sepsis with septic shock; N39.0 Urinary tract infection, site not specified; G82.20 Paraplegia, unspecified; J44.9 Chronic obstructive pulmonary disease, unspecified; I87.2 Venous insufficiency (chronic) (peripheral); I50.9 Heart failure, unspecified; I11.0 Hypertensive heart disease with heart failure; E11.9 Type 2 diabetes mellitus without complications; F17.210 Nicotine dependence, cigarettes, uncomplicated; E78.5 Hyperlipidemia, unspecified; N20.0 Calculus of kidney; N31.9 Neuromuscular dysfunction of bladder, unspecified; D69.6 Thrombocytopenia, unspecified; E87.6 Hypokalemia; L89.159 Pressure ulcer of sacral region, unspecified stage; Z99.3 Dependence on wheelchair; Z82.49 Family history of ischemic heart disease and other diseases of the circulatory system; Z87.828 Personal history of other (healed) physical injury and trauma
CPT/HCPCS: 36415; 71010; 76705; 80048; 80053; 80074; 80202; 81001; 82140; 82805; 82962; 83735; 84100; 85025; 85610; 86140; 87040; 87076; 87086; 87186; 93005; 93010; 93306; 96361; 96365; 96367; 96375; 99406; J0295; J1644; J1815; J1956; J2405; J2543; J3370; J3480; J7030; J7040; J7050

== ENCOUNTER 2017-03-15 08:38 | Inpatient (IN) | payer OTHER ==
[2017-03-15 11:08] LABS: Basophils % (Auto) 0.4 % (0.0-1.8); Eosinophils # (Auto) 0.1 K/mm3 (0.0-0.4); Eosinophils % (Auto) 1.3 % (0.0-4.3); Hematocrit 33.9 % (35.5-45.6); Hemoglobin 11.6 gm/dl (11.8-15.2); Lymphocytes % (Auto) 32.2 % (13.4-35.0); Mean Corpuscular HGB Conc 34 % (32-34); Mean Corpuscular Hemoglobin 33 pg (28-32); Mean Corpuscular Volume 98 fl (84-94); Monocytes # (Auto) 0.5 K/mm3 (0.0-0.8); Monocytes % (Auto) 7.3 % (0.0-7.3); Red Blood Count 3.46 M/mm3 (3.65-5.03); Red Cell Distribution Width 13.6 % (13.2-15.2)
[2017-03-15 11:17] LABS: Platelet Count 56 K/mm3 (140-440)
[2017-03-15 11:19] LABS: Alanine Aminotransferase 10 units/L (7-56); Albumin 2.3 g/dL (3.9-5); BUN/Creatinine Ratio 4; Bilirubin,Direct 0.8 mg/dL (0-0.2); Blood Urea Nitrogen 3 mg/dL (9-20); Calcium 7.9 mg/dL (8.4-10.2); Hemolysis Index 2; INR 1.35 (0.87-1.13)
--- NOTE | 2017-03-15 11:40 | XRay Report ---
AP CHEST: HISTORY: Sepsis AP view of the chest demonstrates a normal mediastinal and cardiac contour with clear lungs and normal bony and soft tissue structures. IMPRESSION: Unremarkable AP chest. No significant change since 03/13/17.
[2017-03-15] MEDS ORDERED: K-DUR PO ONE (12:40)
--- NOTE | 2017-03-15 12:40 | Emergency Department Report ---
ED General Adult HPI - General Chief complaint: Medical Clearance Stated complaint: MEDICAL CLEARANCE Time Seen by Provider: 03/15/17 10:18 Source: patient, EMS Mode of arrival: Stretcher Limitations: Other - History of Present Illness Initial comments: The patient was apparently in route to a rehabilitation facility in [facility] associated with the [facility]. Apparently he requested to get his electric wheelchair at his home and route. I am told that EMS brought him here because the patient refused to continue to [place] without his wheelchair. EMS was not authorized to stop at the patient's home. Patient is a rather poor historian. Doesn't have any specific complaints. He was screened for any emergency medical condition when he arrived in the emergency department. His examination revealed a substantially swollen right arm which is red and warm with a long picc line in his antecubital fossa. Therefore as he appeared to have a cellulitis versus DVT versus infected PICC line versus any of the above a workup ensued. -: unknown Location: right, upper extremity Quality: other (patient does not seem to be very cognizant of his right arm. He does state that it is swollen. He is not complaining of substantial pain.) Associated Symptoms: denies other symptoms - Related Data Previous Rx's Medication Instructions Recorded Last Taken Type Ampicillin/Sulbactam [Unasyn] 3 gm IV Q6H 5 Days vial 03/14/17 Unknown Rx Insulin Regular, Human [HumuLIN R] 0 units SUB-Q Q6HR #1 vial 03/14/17 Unknown Rx amLODIPine [Norvasc] 5 mg PO QDAY #30 tablet 03/14/17 Unknown Rx oxyCODONE /ACETAMINOPHEN [Percocet 1 tab PO Q6H PRN #14 tablet 03/14/17 Unknown Rx 5/325 mg] Allergies Allergy/AdvReac Type Severity Reaction Status Date / Time No Known Allergies Allergy Unverified 03/06/17 12:51 ED Review of Systems ROS: Stated complaint: MEDICAL CLEARANCE Other details as noted in HPI Comment: Unobtainable due to pts medical conditions (somewhat altered mental status but patient does not have any specific complaint.) ED Past Medical Hx - Past Medical History Previous Medical History?: Yes Hx Hypertension: Yes Hx Congestive Heart Failure: Yes Hx Diabetes: Yes Hx Deep Vein Thrombosis: No Hx COPD: Yes - Surgical History Hx Pacemaker: No Hx Internal Defibrillator: No - Social History Smoking Status: Unknown if ever smoked - Medications Home Medications: Home Medications Medication Instructions Recorded Confirmed Last Taken Type Ampicillin/Sulbactam [Unasyn] 3 gm IV Q6H 5 Days vial 03/14/17 03/15/17 Unknown Rx Insulin Regular, Human [HumuLIN R] 0 units SUB-Q Q6HR #1 vial 03/14/17 03/15/17 Unknown Rx amLODIPine [Norvasc] 5 mg PO QDAY #30 tablet 03/14/17 03/15/17 Unknown Rx oxyCODONE /ACETAMINOPHEN [Percocet 1 tab PO Q6H PRN #14 tablet 03/14/17 Unknown Rx 5/325 mg] ED Physical Exam - General Limitations: Altered Mental Status General appearance: alert, in no apparent distress - Head Head exam: Present: atraumatic, normocephalic - Eye Eye exam: Present: normal appearance. Absent: scleral icterus - ENT ENT exam: Present: mucous membranes moist - Neck Neck exam: Present: normal inspection - Respiratory Respiratory exam: Present: normal lung sounds bilaterally. Absent: respiratory distress - Cardiovascular Cardiovascular Exam: Present: regular rate, normal rhythm. Absent: systolic murmur, diastolic murmur, rubs, gallop - GI/Abdominal GI/Abdominal exam: Present: soft, normal bowel sounds. Absent: distended, tenderness, guarding, rebound - Rectal Rectal exam: Present: deferred - Extremities Exam Extremities exam: Present: other (the right arm is erythematous and edematous. There is about 2+ and edema. There is no signs of compartment. There is no signs of tenosynovitis. The swelling extends beyond the PICC line which is located in the antecubital fossa. There is definitely erythema and local warmth.) - Back Exam Back exam: Present: normal inspection - Neurological Exam Neurological exam: Present: other (no acute focal deficit) - Psychiatric Psychiatric exam: Present: normal affect, normal mood - Skin Skin exam: Present: warm, dry, intact, normal color. Absent: rash ED Course Vital Signs 03/15/17 09:29 Respiratory 18 Rate O2 Sat by Pulse 96 Oximetry - Reevaluation(s) Reevaluation #1: The patient was found to be hypokalemic. His potassium was repleted orally. He was able to eat as well. A venous Doppler was negative for DVT. He was begun on vancomycin for cellulitis/PICC line infection. He will be admitted by Dr. Segundo. 03/15/17 13:30 ED Medical Decision Making - Lab Data Result diagrams: 03/15/17 10:45 03/15/17 10:45 Laboratory Results - last 24 hr 03/15/17 03/15/17 03/15/17 10:42 10:45 10:45 WBC 6.3 RBC 3.46 L Hgb 11.6 L Hct 33.9 L MCV 98 H MCH 33 H MCHC 34 RDW 13.6 Plt Count 56 L Lymph % (Auto) 32.2 [place] % (Auto) 7.3 Eos % (Auto) 1.3 Baso % (Auto) 0.4 Lymph # 2.0 [place] # 0.5 Eos # 0.1 Baso # 0.0 Seg Neutrophils % 58.8 Seg Neutrophils # 3.7 PT 17.4 H INR 1.35 H VBG pH Sodium Potassium Chloride Carbon Dioxide Anion Gap BUN Creatinine Estimated GFR BUN/Creatinine Ratio Glucose POC Glucose 109 H Lactic Acid Calcium Total Bilirubin Direct Bilirubin Indirect Bilirubin AST ALT Alkaline Phosphatase Total Protein Albumin Albumin/Globulin Ratio 03/15/17 03/15/17 03/15/17 10:45 10:45 10:45 WBC RBC Hgb Hct MCV MCH MCHC RDW Plt Count Lymph % (Auto) [place] % (Auto) Eos % (Auto) Baso % (Auto) Lymph # [place] # Eos # Baso # Seg Neutrophils % Seg Neutrophils # PT INR VBG pH 7.409 Sodium 139 Potassium 2.9 L* Chloride 102.5 Carbon Dioxide 26 Anion Gap 13 BUN 3 L Creatinine 0.8 Estimated GFR > 60 BUN/Creatinine Ratio 4 Glucose 111 H POC Glucose Lactic Acid 1.00 Calcium 7.9 L Total Bilirubin 1.50 H Direct Bilirubin 0.8 H Indirect Bilirubin 0.7 AST 30 ALT 10 Alkaline Phosphatase 89 Total Protein 7.3 Albumin 2.3 L Albumin/Globulin Ratio 0.5 - EKG Data -: EKG Interpreted by Me EKG shows normal: sinus rhythm Rate: normal - EKG Data Interpretation: other (mild ST depression prolonged QT. I suspect this is secondary to hypokalemia) Critical care attestation.: If time is entered above; I have spent that time in minutes in the direct care of this critically ill patient, excluding procedure time. ED Disposition Clinical Impression: Cellulitis of right arm, Hypokalemia PICC line infection Qualifiers: Encounter type: initial encounter Qualified Code(s): T80.219A - Unspecified infection due to central venous catheter, initial encounter Disposition: OP ADMIT IP TO THIS HOSP Is pt being admited?: Yes Does the pt Need Aspirin: Yes Condition: Stable Referrals: PRIMARY CARE, [Primary Care Provider] - 3-5 Days Time of Disposition: 13:32
[2017-03-15] MEDS ORDERED: VANCOMYCIN PHARMACY TO DOSE IV SCH (13:00)
--- NOTE | 2017-03-15 13:16 | History and Physical Report ---
History of Present Illness Chief complaint: Swollen right arm History of present illness: 62 YO Male with HTN, CHF, COPD, DM, Paraplegia, Nicotine Dependence presents to ED for evaluation. Pt seen and evaluated in ED for suspected RUE edema and cellulitis, and suspected R arm cellulitis. Pt seen and evaluated and found to have chronic RUE edema, and no cellulitis, but chronic edema. Pt medically optimized and discharged from ED. Case management notified, and patient is awaiting transport to [place] for senior living placement. Past History Past Medical History: COPD, diabetes, heart failure, hypertension Social history: . denies: smoking, alcohol abuse, prescription drug abuse Family history: diabetes, hypertension Medications and Allergies Allergies Allergy/AdvReac Type Severity Reaction Status Date / Time No Known Allergies Allergy Unverified 03/06/17 12:51 Home Medications Medication Instructions Recorded Confirmed Last Taken Type Ampicillin/Sulbactam [Unasyn] 3 gm IV Q6H 5 Days vial 03/14/17 03/15/17 Unknown Rx Insulin Regular, Human [HumuLIN R] 0 units SUB-Q Q6HR #1 vial 03/14/17 03/15/17 Unknown Rx amLODIPine [Norvasc] 5 mg PO QDAY #30 tablet 03/14/17 03/15/17 Unknown Rx oxyCODONE /ACETAMINOPHEN [Percocet 1 tab PO Q6H PRN #14 tablet 03/14/17 Unknown Rx 5/325 mg] Active Meds: Active Medications Vancomycin HCl 1,500 mg/ (Sodium Chloride) 515 mls @ 257.5 mls/hr IV Q12H [facility] Vancomycin HCl (Vancomycin Pharmacy To Dose) 1 each IV PKCONSULT ESTRELLA PRN Reason: Protocol Review of Systems Constitutional: no weight loss, no weight gain, no fever, no chills Ears, nose, mouth and throat: no ear pain, no ear discharge, no tinnitis, no decreased hearing, no nose pain Cardiovascular: no chest pain, no orthopnea, no palpitations, no rapid/ irregular heart beat, no edema, no syncope Respiratory: no cough, no cough with sputum, no excessive sputum, no hemoptysis Gastrointestinal: no abdominal pain, no nausea, no vomiting, no diarrhea, no constipation Genitourinary Male: no dysuria, no hematuria, no flank pain, no discharge, no urinary frequency, no urinary hesitancy Rectal: no pain, no incontinence, no bleeding Musculoskeletal: no neck stiffness, no neck pain, no shooting arm pain, no arm numbness/tingling, no low back pain Integumentary: no rash, no pruritis, no redness, no sores, no wounds, no jaundice Neurological: no head injury, no transient paralysis, no paralysis, no weakness , no parathesias, no numbness, no tingling Psychiatric: no anxiety, no memory loss, no change in sleep habits, no sleep disturbances, no insomnia, no hypersomnia Endocrine: no cold intolerance, no heat intolerance, no polyphagia, no excessive thirst, no polydipsia, no polyuria Hematologic/Lymphatic: no easy bruising, no easy bleeding Allergic/Immunologic: no urticaria, no allergic rhinitis, no wheezing Exam - Constitutional Vitals: Temp Pulse Resp BP Pulse Ox 18 96 03/15/17 09:29 03/15/17 09:29 General appearance: Present: no acute distress - EENT Eyes: Present: PERRL ENT: hearing intact, clear oral mucosa - Neck Neck: Present: supple, normal ROM - Respiratory Respiratory effort: normal Respiratory: bilateral: CTA - Cardiovascular Heart Sounds: Present: S1 & S2. Absent: rub, click - Extremities Extremities: pulses symmetrical, No edema - Abdominal General gastrointestinal: Present: soft, non-tender, non-distended, normal bowel sounds Male genitourinary: Present: normal - Integumentary Integumentary: Present: clear, dry - Musculoskeletal Musculoskeletal: generalized weakness - Psychiatric Psychiatric: appropriate mood/affect, intact judgment & insight - Neurologic Neurologic: focal deficits, no gait normal Results - Labs CBC & Chem 7: 03/15/17 10:45 03/15/17 10:45 Labs: Abnormal lab results 03/15/17 03/15/17 03/15/17 Range/Units 10:42 10:45 10:45 RBC 3.46 L (3.65-5.03) M/mm3 Hgb 11.6 L (11.8-15.2) gm/dl Hct 33.9 L (35.5-45.6) % MCV 98 H (84-94) fl MCH 33 H (28-32) pg Plt Count 56 L (140-440) K/mm3 PT 17.4 H (12.2-14.9) Sec. INR 1.35 H (0.87-1.13) Potassium (3.6-5.0) mmol/L BUN (9-20) mg/dL Glucose (75-100) mg/dL POC Glucose 109 H (70-105) Calcium (8.4-10.2) mg/dL Total Bilirubin (0.1-1.2) mg/dL Direct Bilirubin (0-0.2) mg/dL Albumin (3.9-5) g/dL 03/15/17 Range/Units 10:45 RBC (3.65-5.03) M/mm3 Hgb (11.8-15.2) gm/dl Hct (35.5-45.6) % MCV (84-94) fl MCH (28-32) pg Plt Count (140-440) K/mm3 PT (12.2-14.9) Sec. INR (0.87-1.13) Potassium 2.9 L* (3.6-5.0) mmol/L BUN 3 L (9-20) mg/dL Glucose 111 H (75-100) mg/dL POC Glucose (70-105) Calcium 7.9 L (8.4-10.2) mg/dL Total Bilirubin 1.50 H (0.1-1.2) mg/dL Direct Bilirubin 0.8 H (0-0.2) mg/dL Albumin 2.3 L (3.9-5) g/dL Assessment and Plan - Patient Problems (1) Chronic edema Current Visit: Yes Status: Acute Plan to address problem: Supportive care, RUE Ultrasound, empiric antibiotics, supportive care, Pt discharged to [place]. Awaiting transport.
[2017-03-15] MEDS ORDERED: TYLENOL PO PRN (13:17)
[2017-03-15] MEDS ORDERED: PROVENTIL IH PRN (13:17)
[2017-03-15] MEDS ORDERED: MILK OF MAGNESIA PO PRN (13:17)
[2017-03-15] MEDS ORDERED: ZOFRAN IV PRN (13:17)
[2017-03-15] MEDS ORDERED: DULCOLAX PR PRN (13:17)
[2017-03-15] MEDS ORDERED: BABY ASPIRIN PO ONE (13:32)
[2017-03-15] MEDS: VANCOMYCIN 1,500 MG in NACL 0.9% 500 ML 500 ML IV SCH (14:27)
--- NOTE | 2017-03-15 16:15 | Event Note ---
62 YO Male discharged from [facility], Pt seen and reevaluated in ED for suspected RUE infection to PICC line. Pt seen and reevaluated with discharging physician, and no acute changes since discharge. Pt is medically optimized and does not require admission. Pt discharged to [facility] as per case management. Case management notified by discharging physician to rearrange transport today. Pt discharged from ED. Awaiting transport at this time.
[2017-03-16] MEDS: VANCOMYCIN 1,500 MG in NACL 0.9% 500 ML 500 ML IV SCH ×2 (05:46→15:19)
--- NOTE | 2017-03-16 09:04 | Progress Note ---
Assessment and Plan Assessment and plan: This is a 62 year-old male, presents to the emergency department via EMS with a complaint of malaise Debility unable to care for himself, needs placement -awaiting placement, continue PT - Sepsis due to bacteremia and UTI On Unisyn ID consult requsted for ABx Coverage Patient has indwelling santos catheter which is has changed in the ER blood cx growing Enterococcus durans, continue Abx, case discussed with ID TTE showed no vegetations. * Enterococcus Bactermia to be transfered to [facility] to complete his Abx - Septic shock: Sec to sepsis IV NS boluses given in the ER and placed on levophed. Off levophed since 03/07/17 - Lactic acidosis Sec to Sepsis, trended down - UTI (urinary tract infection): has indwelling Santos's POA - Decubital ulcer Wound care following - Paraplegia Patient dependent on Nurses for ADL's and gets Home visits regularly. Suggested SNF previously but patient refuses - COPD (chronic obstructive pulmonary disease) not in exacerbation Duonebs prn - Hypokalemia: Supplemented - Stasis dermatitis of both legs wound care - DVT prophylaxis on Lovenox History Interval history: Review of systems Constitutional: No fevers, no malaise, no joint pains CVS: No chest pain, no orthopnea, no dyspnea on exertion, no pedal edema GI: No abdominal pain, no diarrhea, no vomiting, no constipation Respiratory: No shortness of breath, no wheezing, no coughing Hospitalist Physical - Physical exam Narrative exam: General.: Appears well, no distress, nontoxic HEENT: Moist mucous membranes, extraocular muscles intact, no lymphadenopathy Neck: supple Cardiac: S1-S2 heard Lungs: clear to auscultation bilaterally Abdomen: soft , nontender, nondistended, bowel sounds positive Extremities: no edema clubbing or cyanosis Skin: sacral decub POA Neurologic: paraplegic Psych: appropriate behavior, appropriate mood, corporative, judgment intact - Constitutional Vitals: Temp Pulse Resp BP Pulse Ox 98.7 F 75 20 159/63 98 03/16/17 03:10 03/16/17 03:10 03/16/17 03:10 03/16/17 03:10 03/16/17 03:10 Results - Labs CBC & Chem 7: 03/15/17 10:45 03/15/17 10:45 Labs: Laboratory Last Values WBC 6.3 K/mm3 (4.5-11.0) 03/15/17 10:45 RBC 3.46 M/mm3 (3.65-5.03) L 03/15/17 10:45 Hgb 11.6 gm/dl (11.8-15.2) L 03/15/17 10:45 Hct 33.9 % (35.5-45.6) L 03/15/17 10:45 MCV 98 fl (84-94) H 03/15/17 10:45 MCH 33 pg (28-32) H 03/15/17 10:45 MCHC 34 % (32-34) 03/15/17 10:45 RDW 13.6 % (13.2-15.2) 03/15/17 10:45 Plt Count 56 K/mm3 (140-440) L 03/15/17 10:45 Lymph % (Auto) 32.2 % (13.4-35.0) 03/15/17 10:45 [place] % (Auto) 7.3 % (0.0-7.3) 03/15/17 10:45 Eos % (Auto) 1.3 % (0.0-4.3) 03/15/17 10:45 Baso % (Auto) 0.4 % (0.0-1.8) 03/15/17 10:45 Lymph # 2.0 K/mm3 (1.2-5.4) 03/15/17 10:45 [place] # 0.5 K/mm3 (0.0-0.8) 03/15/17 10:45 Eos # 0.1 K/mm3 (0.0-0.4) 03/15/17 10:45 Baso # 0.0 K/mm3 (0.0-0.1) 03/15/17 10:45 Seg Neutrophils % 58.8 % (40.0-70.0) 03/15/17 10:45 Seg Neutrophils # 3.7 K/mm3 (1.8-7.7) 03/15/17 10:45 PT 17.4 Sec. (12.2-14.9) H 03/15/17 10:45 INR 1.35 (0.87-1.13) H 03/15/17 10:45 VBG pH 7.409 (7.320-7.420) 03/15/17 10:45 Sodium 139 mmol/L (137-145) 03/15/17 10:45 Potassium 2.9 mmol/L (3.6-5.0) L* 03/15/17 10:45 Chloride 102.5 mmol/L (98-107) 03/15/17 10:45 Carbon Dioxide 26 mmol/L (22-30) 03/15/17 10:45 Anion Gap 13 mmol/L 03/15/17 10:45 BUN 3 mg/dL (9-20) L 03/15/17 10:45 Creatinine 0.8 mg/dL (0.8-1.5) 03/15/17 10:45 Estimated GFR > 60 ml/min 03/15/17 10:45 BUN/Creatinine Ratio 4 % 03/15/17 10:45 Glucose 111 mg/dL (75-100) H 03/15/17 10:45 POC Glucose 109 (70-105) H 03/15/17 10:42 Lactic Acid 1.00 mmol/L (0.7-2.0) 03/15/17 10:45 Calcium 7.9 mg/dL (8.4-10.2) L 03/15/17 10:45 Total Bilirubin 1.50 mg/dL (0.1-1.2) H 03/15/17 10:45 Direct Bilirubin 0.8 mg/dL (0-0.2) H 03/15/17 10:45 Indirect Bilirubin 0.7 mg/dL 03/15/17 10:45 AST 30 units/L (5-40) 03/15/17 10:45 ALT 10 units/L (7-56) 03/15/17 10:45 Alkaline Phosphatase 89 units/L (35-129) 03/15/17 10:45 Total Protein 7.3 g/dL (6.3-8.2) 03/15/17 10:45 Albumin 2.3 g/dL (3.9-5) L 03/15/17 10:45 Albumin/Globulin Ratio 0.5 % 03/15/17 10:45
--- NOTE | 2017-03-16 09:05 | Discharge Summary ---
Providers - Providers Date of Admission: 03/15/17 13:17 Attending physician: VIKTORIA GAINES MD Primary care physician: PATRIZIA BURNS MD Hospitalization Condition: Stable Disposition: DC-30 STILL A PATIENT Exam - Constitutional Vitals: Temp Pulse Resp BP Pulse Ox 98.7 F 75 20 159/63 98 03/16/17 03:10 03/16/17 03:10 03/16/17 03:10 03/16/17 03:10 03/16/17 03:10 Plan Follow up with: PATRIZIA BURNS MD [Primary Care Provider] - 3-5 Days
--- NOTE | 2017-03-16 14:25 | Vascular Lab Report ---
RIGHT UPPER EXTREMITY VENOUS DUPLEX: REASON FOR EXAM: Pain and swelling of the right upper extremity COMMENTS ON THE RIGHT: All arm veins visualized are freely compressible without evidence of internal echogenicity. The subclavian and internal jugular veins are free of thrombus. Flow is spontaneous and phasic throughout. There is a PICC line which partially limits evaluation of the surrounding veins due to the PICC bandage. COMMENTS ON THE LEFT: The subclavian and internal jugular veins are free of thrombus. IMPRESSION: No evidence of acute or chronic deep venous thrombosis in the right upper extremity.
[2017-03-16] MEDS ORDERED: D50W (25GM) Syringe IV PRN (15:02)
[2017-03-16] MEDS ORDERED: UNASYN IV SCH (16:00)
[2017-03-16] MEDS: NOVOLOG SUB-Q SCH ×2 (18:52→22:41)
[2017-03-16] MEDS: UNASYN/NS 3 GM/100 ML 3 GM/100 ML BAG IV SCH ×2 (18:52→22:41)
[2017-03-17] MEDS: UNASYN/NS 3 GM/100 ML 3 GM/100 ML BAG IV SCH ×3 (04:36→22:14)
[2017-03-17] MEDS: NOVOLOG SUB-Q SCH ×3 (07:49→16:17)
[2017-03-17] MEDS: NORVASC PO SCH (13:03)
--- NOTE | 2017-03-17 15:28 | Progress Note ---
Assessment and Plan Assessment and plan: This is a 62 year-old male, presents to the emergency department via EMS with a complaint of malaise Debility unable to care for himself, needs placement -awaiting placement, continue PT - Sepsis due to bacteremia and UTI On Unisyn ID consult requsted for ABx Coverage Patient has indwelling santos catheter which is has changed in the ER blood cx growing Enterococcus durans, continue Abx, case discussed with ID TTE showed no vegetations. * Enterococcus Bactermia to be transfered to [facility] to complete his Abx - Septic shock: Sec to sepsis IV NS boluses given in the ER and placed on levophed. Off levophed since 03/07/17 - Lactic acidosis Sec to Sepsis, trended down - UTI (urinary tract infection): has indwelling Santos's POA - Decubital ulcer Wound care following - Paraplegia Patient dependent on Nurses for ADL's and gets Home visits regularly. Suggested SNF previously but patient refuses - COPD (chronic obstructive pulmonary disease) not in exacerbation Duonebs prn - Hypokalemia: Supplemented - Stasis dermatitis of both legs wound care - DVT prophylaxis on Lovenox History Interval history: Review of systems Constitutional: No fevers, no malaise, no joint pains CVS: No chest pain, no orthopnea, no dyspnea on exertion, no pedal edema GI: No abdominal pain, no diarrhea, no vomiting, no constipation Respiratory: No shortness of breath, no wheezing, no coughing Hospitalist Physical - Physical exam Narrative exam: General.: Appears well, no distress, nontoxic HEENT: Moist mucous membranes, extraocular muscles intact, no lymphadenopathy Neck: supple Cardiac: S1-S2 heard Lungs: clear to auscultation bilaterally Abdomen: soft , nontender, nondistended, bowel sounds positive Extremities: no edema clubbing or cyanosis Skin: sacral decub POA Neurologic: paraplegic Psych: appropriate behavior, appropriate mood, corporative, judgment intact - Constitutional Vitals: Temp Pulse Resp BP Pulse Ox 98.7 F 73 14 108/64 93 03/16/17 15:46 03/17/17 07:45 03/17/17 07:46 03/17/17 07:45 03/17/17 07:46 General appearance: Present: no acute distress Results - Labs CBC & Chem 7: 03/15/17 10:45 03/15/17 10:45 Labs: Laboratory Last Values WBC 6.3 K/mm3 (4.5-11.0) 03/15/17 10:45 RBC 3.46 M/mm3 (3.65-5.03) L 03/15/17 10:45 Hgb 11.6 gm/dl (11.8-15.2) L 03/15/17 10:45 Hct 33.9 % (35.5-45.6) L 03/15/17 10:45 MCV 98 fl (84-94) H 03/15/17 10:45 MCH 33 pg (28-32) H 03/15/17 10:45 MCHC 34 % (32-34) 03/15/17 10:45 RDW 13.6 % (13.2-15.2) 03/15/17 10:45 Plt Count 56 K/mm3 (140-440) L 03/15/17 10:45 Lymph % (Auto) 32.2 % (13.4-35.0) 03/15/17 10:45 [place] % (Auto) 7.3 % (0.0-7.3) 03/15/17 10:45 Eos % (Auto) 1.3 % (0.0-4.3) 03/15/17 10:45 Baso % (Auto) 0.4 % (0.0-1.8) 03/15/17 10:45 Lymph # 2.0 K/mm3 (1.2-5.4) 03/15/17 10:45 [place] # 0.5 K/mm3 (0.0-0.8) 03/15/17 10:45 Eos # 0.1 K/mm3 (0.0-0.4) 03/15/17 10:45 Baso # 0.0 K/mm3 (0.0-0.1) 03/15/17 10:45 Seg Neutrophils % 58.8 % (40.0-70.0) 03/15/17 10:45 Seg Neutrophils # 3.7 K/mm3 (1.8-7.7) 03/15/17 10:45 PT 17.4 Sec. (12.2-14.9) H 03/15/17 10:45 INR 1.35 (0.87-1.13) H 03/15/17 10:45 VBG pH 7.409 (7.320-7.420) 03/15/17 10:45 Sodium 139 mmol/L (137-145) 03/15/17 10:45 Potassium 2.9 mmol/L (3.6-5.0) L* 03/15/17 10:45 Chloride 102.5 mmol/L (98-107) 03/15/17 10:45 Carbon Dioxide 26 mmol/L (22-30) 03/15/17 10:45 Anion Gap 13 mmol/L 03/15/17 10:45 BUN 3 mg/dL (9-20) L 03/15/17 10:45 Creatinine 0.8 mg/dL (0.8-1.5) 03/15/17 10:45 Estimated GFR > 60 ml/min 03/15/17 10:45 BUN/Creatinine Ratio 4 % 03/15/17 10:45 Glucose 111 mg/dL (75-100) H 03/15/17 10:45 POC Glucose 90 (70-105) 03/17/17 07:44 Lactic Acid 1.00 mmol/L (0.7-2.0) 03/15/17 10:45 Calcium 7.9 mg/dL (8.4-10.2) L 03/15/17 10:45 Total Bilirubin 1.50 mg/dL (0.1-1.2) H 03/15/17 10:45 Direct Bilirubin 0.8 mg/dL (0-0.2) H 03/15/17 10:45 Indirect Bilirubin 0.7 mg/dL 03/15/17 10:45 AST 30 units/L (5-40) 03/15/17 10:45 ALT 10 units/L (7-56) 03/15/17 10:45 Alkaline Phosphatase 89 units/L (35-129) 03/15/17 10:45 Total Protein 7.3 g/dL (6.3-8.2) 03/15/17 10:45 Albumin 2.3 g/dL (3.9-5) L 03/15/17 10:45 Albumin/Globulin Ratio 0.5 % 03/15/17 10:45
[2017-03-18] MEDS: NOVOLOG SUB-Q SCH ×5 (00:07→23:27)
[2017-03-18] MEDS: PERCOCET 5/325 PO PRN ×2 (08:45→22:53)
[2017-03-18] MEDS: NORVASC PO SCH (10:00)
--- NOTE | 2017-03-18 10:26 | Progress Note ---
Assessment and Plan Assessment and plan: This is a 62 year-old male, presents to the emergency department via EMS with a complaint of malaise Debility unable to care for himself, needs placement -awaiting placement, continue PT - Sepsis due to bacteremia and UTI On Unisyn till 03/19 ID consult requsted for ABx Coverage Patient has indwelling santos catheter which was exchanged blood cx growing Enterococcus durans, continue Abx, case discussed with ID TTE showed no vegetations. * Enterococcus Bactermia to be transfered to [facility] on sunday - Septic shock: Sec to sepsis IV NS boluses given in the ER and placed on levophed. Off levophed since 03/07/17 - Lactic acidosis Sec to Sepsis, trended down - UTI (urinary tract infection): has indwelling Santos's POA continue unasyn - Decubital ulcer POA has multiple abrasions on legs but no sacral ulcers - Paraplegia Patient dependent on Nurses for ADL's and gets Home visits regularly. Suggested SNF previously but patient refuses - COPD (chronic obstructive pulmonary disease) not in exacerbation Duonebs prn - Hypokalemia: Supplemented - Stasis dermatitis of both legs wound care - DVT prophylaxis on Lovenox History Interval history: Review of systems Constitutional: No fevers, no malaise, no joint pains CVS: No chest pain, no orthopnea, no dyspnea on exertion, no pedal edema GI: No abdominal pain, no diarrhea, no vomiting, no constipation Respiratory: No shortness of breath, no wheezing, no coughing Hospitalist Physical - Physical exam Narrative exam: General.: Appears well, no distress, nontoxic HEENT: Moist mucous membranes, extraocular muscles intact, no lymphadenopathy Neck: supple Cardiac: S1-S2 heard Lungs: clear to auscultation bilaterally Abdomen: soft , nontender, nondistended, bowel sounds positive Extremities: no edema clubbing or cyanosis Skin: sacral decub POA Neurologic: paraplegic Psych: appropriate behavior, appropriate mood, corporative, judgment intact - Constitutional Vitals: Temp Pulse Resp BP Pulse Ox 98.3 F 78 18 118/70 96 03/18/17 10:01 03/18/17 10:01 03/18/17 10:01 03/18/17 10:01 03/18/17 10:01 General appearance: Present: no acute distress Results - Labs CBC & Chem 7: 03/15/17 10:45 03/15/17 10:45 Labs: Laboratory Last Values WBC 6.3 K/mm3 (4.5-11.0) 03/15/17 10:45 RBC 3.46 M/mm3 (3.65-5.03) L 03/15/17 10:45 Hgb 11.6 gm/dl (11.8-15.2) L 03/15/17 10:45 Hct 33.9 % (35.5-45.6) L 03/15/17 10:45 MCV 98 fl (84-94) H 03/15/17 10:45 MCH 33 pg (28-32) H 03/15/17 10:45 MCHC 34 % (32-34) 03/15/17 10:45 RDW 13.6 % (13.2-15.2) 03/15/17 10:45 Plt Count 56 K/mm3 (140-440) L 03/15/17 10:45 Lymph % (Auto) 32.2 % (13.4-35.0) 03/15/17 10:45 [place] % (Auto) 7.3 % (0.0-7.3) 03/15/17 10:45 Eos % (Auto) 1.3 % (0.0-4.3) 03/15/17 10:45 Baso % (Auto) 0.4 % (0.0-1.8) 03/15/17 10:45 Lymph # 2.0 K/mm3 (1.2-5.4) 03/15/17 10:45 [place] # 0.5 K/mm3 (0.0-0.8) 03/15/17 10:45 Eos # 0.1 K/mm3 (0.0-0.4) 03/15/17 10:45 Baso # 0.0 K/mm3 (0.0-0.1) 03/15/17 10:45 Seg Neutrophils % 58.8 % (40.0-70.0) 03/15/17 10:45 Seg Neutrophils # 3.7 K/mm3 (1.8-7.7) 03/15/17 10:45 PT 17.4 Sec. (12.2-14.9) H 03/15/17 10:45 INR 1.35 (0.87-1.13) H 03/15/17 10:45 VBG pH 7.409 (7.320-7.420) 03/15/17 10:45 Sodium 139 mmol/L (137-145) 03/15/17 10:45 Potassium 2.9 mmol/L (3.6-5.0) L* 03/15/17 10:45 Chloride 102.5 mmol/L (98-107) 03/15/17 10:45 Carbon Dioxide 26 mmol/L (22-30) 03/15/17 10:45 Anion Gap 13 mmol/L 03/15/17 10:45 BUN 3 mg/dL (9-20) L 03/15/17 10:45 Creatinine 0.8 mg/dL (0.8-1.5) 03/15/17 10:45 Estimated GFR > 60 ml/min 03/15/17 10:45 BUN/Creatinine Ratio 4 % 03/15/17 10:45 Glucose 111 mg/dL (75-100) H 03/15/17 10:45 POC Glucose 85 (70-105) 03/18/17 07:14 Lactic Acid 1.00 mmol/L (0.7-2.0) 03/15/17 10:45 Calcium 7.9 mg/dL (8.4-10.2) L 03/15/17 10:45 Total Bilirubin 1.50 mg/dL (0.1-1.2) H 03/15/17 10:45 Direct Bilirubin 0.8 mg/dL (0-0.2) H 03/15/17 10:45 Indirect Bilirubin 0.7 mg/dL 03/15/17 10:45 AST 30 units/L (5-40) 03/15/17 10:45 ALT 10 units/L (7-56) 03/15/17 10:45 Alkaline Phosphatase 89 units/L (35-129) 03/15/17 10:45 Total Protein 7.3 g/dL (6.3-8.2) 03/15/17 10:45 Albumin 2.3 g/dL (3.9-5) L 03/15/17 10:45 Albumin/Globulin Ratio 0.5 % 03/15/17 10:45
[2017-03-18] MEDS: UNASYN/NS 3 GM/100 ML 3 GM/100 ML BAG IV SCH ×3 (10:30→23:00)
[2017-03-19] MEDS: PERCOCET 5/325 PO PRN (06:06)
[2017-03-19] MEDS: UNASYN/NS 3 GM/100 ML 3 GM/100 ML BAG IV SCH ×4 (06:07→23:30)
[2017-03-19 08:15] LABS: Hematocrit 34.2 % (35.5-45.6); Hemoglobin 11.6 gm/dl (11.8-15.2); Mean Corpuscular HGB Conc 34 % (32-34); Mean Corpuscular Hemoglobin 33 pg (28-32); Mean Corpuscular Volume 98 fl (84-94); Red Blood Count 3.49 M/mm3 (3.65-5.03); Red Cell Distribution Width 13.9 % (13.2-15.2)
[2017-03-19 08:21] LABS: Platelet Count 57 K/mm3 (140-440)
[2017-03-19] MEDS: NOVOLOG SUB-Q SCH ×4 (08:28→23:25)
[2017-03-19 08:33] LABS: BUN/Creatinine Ratio 4; Blood Urea Nitrogen 3 mg/dL (9-20); Calcium 8.1 mg/dL (8.4-10.2); Hemolysis Index 6
[2017-03-19] MEDS ORDERED: K-DUR PO ONE ×2 (09:17→11:27)
[2017-03-19] MEDS: NORVASC PO SCH (10:25)
--- NOTE | 2017-03-19 12:52 | Progress Note ---
Assessment and Plan This is a 62 year-old male, presents to the emergency department via EMS with a complaint of malaise /Debility unable to care for himself, needs placement -awaiting placement, continue PT /Hypokalemia: cont to replete, level 2.9 today /Sepsis due to bacteremia and UTI On Unisyn till 03/19 ID consult requsted for ABx Coverage Patient has indwelling santos catheter which was exchanged blood cx growing Enterococcus durans, continue Abx, case discussed with ID TTE showed no vegetations. * Enterococcus Bactermia to be transfered to [facility] on sunday /Septic shock: Sec to sepsis IV NS boluses given in the ER and placed on levophed. Off levophed since 03/07/17 / Lactic acidosis Sec to Sepsis, trended down / UTI (urinary tract infection): has indwelling Santos's POA continue unasyn /Decubital ulcer POA has multiple abrasions on legs but no sacral ulcers /Paraplegia Patient dependent on Nurses for ADL's and gets Home visits regularly. Suggested SNF previously but patient refused on on indwelling Santos catheter / COPD (chronic obstructive pulmonary disease) not in exacerbation Duonebs prn /Stasis dermatitis of both legs wound care / DVT prophylaxis on Lovenox History Interval history: No acute event o/n waiting to complete abx and then possible placement Hospitalist Physical - Physical exam Narrative exam: General.: Appears well, no distress, nontoxic HEENT: Moist mucous membranes, extraocular muscles intact, no lymphadenopathy Neck: supple Cardiac: S1-S2 heard Lungs: clear to auscultation bilaterally Abdomen: soft , nontender, nondistended, bowel sounds positive Extremities: no edema clubbing or cyanosis Skin:no rash Neurologic: paraplegic Psych: appropriate behavior, appropriate mood, corporative, judgment intact Subjective Date of service: 03/19/17 Objective - Constitutional Vitals: Vital Signs - 12hr 03/19/17 03/19/17 03/19/17 06:01 06:03 06:07 Temperature 97.7 F Pulse Rate 65 Respiratory 14 Rate Blood Pressure 114/70 Blood Pressure 114/70 [Left] O2 Sat by Pulse 84 75 L Oximetry 03/19/17 03/19/17 03/19/17 07:06 07:50 07:52 Temperature Pulse Rate Respiratory 16 Rate Blood Pressure 110/73 110/73 Blood Pressure [Left] O2 Sat by Pulse 95 96 Oximetry 03/19/17 03/19/17 03/19/17 07:54 07:56 07:57 Temperature Pulse Rate Respiratory Rate Blood Pressure 110/73 110/73 110/73 Blood Pressure [Left] O2 Sat by Pulse 97 96 88 Oximetry 03/19/17 03/19/17 03/19/17 07:59 08:00 08:02 Temperature Pulse Rate Respiratory 16 Rate Blood Pressure 110/73 110/73 Blood Pressure [Left] O2 Sat by Pulse 92 97 84 Oximetry 03/19/17 03/19/17 03/19/17 08:04 08:06 08:08 Temperature Pulse Rate Respiratory Rate Blood Pressure 110/73 110/73 110/73 Blood Pressure [Left] O2 Sat by Pulse 84 85 83 L Oximetry 03/19/17 03/19/17 03/19/17 08:10 08:12 08:14 Temperature Pulse Rate Respiratory Rate Blood Pressure 110/73 110/73 110/73 Blood Pressure [Left] O2 Sat by Pulse 83 L 83 L Oximetry 03/19/17 03/19/17 03/19/17 08:16 08:18 08:19 Temperature Pulse Rate Respiratory Rate Blood Pressure 110/73 110/73 110/73 Blood Pressure [Left] O2 Sat by Pulse 83 L 83 L 83 L Oximetry 03/19/17 03/19/17 03/19/17 08:22 08:23 08:40 Temperature 98.0 F Pulse Rate 71 Respiratory 16 Rate Blood Pressure 110/73 110/73 Blood Pressure 110/73 [Left] O2 Sat by Pulse 85 86 96 Oximetry 03/19/17 10:25 Temperature Pulse Rate 71 Respiratory Rate Blood Pressure 100/67 Blood Pressure [Left] O2 Sat by Pulse Oximetry - Labs CBC & Chem 7: 03/19/17 07:50 03/20/17 04:20 Labs: Abnormal lab results 03/18/17 03/19/17 03/19/17 Range/Units 16:43 07:50 07:50 RBC 3.49 L (3.65-5.03) M/mm3 Hgb 11.6 L (11.8-15.2) gm/dl Hct 34.2 L (35.5-45.6) % MCV 98 H (84-94) fl MCH 33 H (28-32) pg Plt Count 57 L (140-440) K/mm3 Potassium 2.9 L* (3.6-5.0) mmol/L BUN 3 L (9-20) mg/dL Creatinine 0.7 L (0.8-1.5) mg/dL POC Glucose 132 H (70-105) Calcium 8.1 L (8.4-10.2) mg/dL
[2017-03-20] MEDS: PERCOCET 5/325 PO PRN ×2 (00:40→15:27)
[2017-03-20] MEDS: UNASYN/NS 3 GM/100 ML 3 GM/100 ML BAG IV SCH ×4 (04:54→23:26)
[2017-03-20 05:16] LABS: BUN/Creatinine Ratio 3; Blood Urea Nitrogen 2 mg/dL (9-20); Calcium 7.9 mg/dL (8.4-10.2); Hemolysis Index 5
[2017-03-20] MEDS ORDERED: K-DUR PO NR (09:00)
--- NOTE | 2017-03-20 11:54 | Discharge Summary ---
Providers - Providers Date of Admission: 03/15/17 13:17 Date of discharge: 03/20/17 Attending physician: JEN LARA Primary care physician: CONSULTING PRACTICE MANAGER Hospitalization Condition: Stable Hospital course: This is a 62 year-old male, presents to the emergency department via EMS with a complaint of malaise. He has history of HTN, COPD, DM , CHF, paraplegic due to C spine injury while in [employer] around 1975, admitted on 03/06/2017 due to generalized weakness, lethargy of unknown duration. Patient reports he has been feeling sick for a week. He has a chronic indweling santos cahnged once a month. EMS found him lethargic with a BP of 70/30 and HR of 50 bpm after receiving .5 of atropine. Also noted cloudy urine. He also was c/o pain to his buttocks where he feels he has decubitus ulcers. In the ED, initial temperature was 98.3, heart rate 73, respirations 17, O2 sat 97, blood pressure at night 94/46. White count 11.2. Creat 1.3. Lactic acid 3.5. Urinalysis showed large leukocyte esterase and 182 white blood cells. CXR neg. Abd US shows mild hepatic steatosis and right nephrolithiasis non obstructive. In the ED he was placed on levophed. Discharge diagnosis and management: /Debility unable to care for himself, needs placement -awaiting placement, continue PT /Hypokalemia: cont to replete, level 2.9 today /Sepsis due to bacteremia and UTI On Unisyn till 03/19 ID consult requsted for ABx Coverage Patient has indwelling santos catheter which was exchanged blood cx growing Enterococcus durans, continue Abx, case discussed with ID TTE showed no vegetations. * Enterococcus Bactermia to be transfered to [facility] on sunday /Septic shock: Sec to sepsis IV NS boluses given in the ER and placed on levophed. Off levophed since 03/07/17 / Lactic acidosis Sec to Sepsis, trended down / UTI (urinary tract infection): has indwelling Santos's POA continue unasyn /Decubital ulcer POA has multiple abrasions on legs but no sacral ulcers /Paraplegia Patient dependent on Nurses for ADL's and gets Home visits regularly. Suggested SNF previously but patient refused on on indwelling Santos catheter / COPD (chronic obstructive pulmonary disease) not in exacerbation Duonebs prn /Stasis dermatitis of both legs wound care / DVT prophylaxis on Lovenox Hospitalist Physical - Physical exam Narrative exam: General.: Appears well, no distress, nontoxic HEENT: Moist mucous membranes, extraocular muscles intact, no lymphadenopathy Neck: supple Cardiac: S1-S2 heard Lungs: clear to auscultation bilaterally Abdomen: soft , nontender, nondistended, bowel sounds positive Extremities: no edema clubbing or cyanosis Skin:no rash Neurologic: paraplegic Psych: appropriate behavior, appropriate mood, corporative, judgment intact Disposition: DC/TX-70 ANOTHER TYPE HLTHCARE Time spent for discharge: 32 minutes Core Measure Documentation - Palliative Care Palliative Care/ Comfort Measures: Not Applicable - Core Measures Any of the following diagnoses?: none Exam - Constitutional Vitals: Temp Pulse Resp BP Pulse Ox 98.9 F 66 16 116/72 100 03/20/17 06:42 03/19/17 14:00 03/19/17 14:00 03/20/17 06:42 03/19/17 19:22 Plan Activity: up only with assistance Diet: renal Wound: per wound nurse instructions Follow up with: PRIMARY CARE, [Primary Care Provider] - 3-5 Days Prescriptions: amLODIPine [Norvasc] 5 mg PO QDAY #30 tablet Insulin Regular, Human [HumuLIN R] 0 units SUB-Q Q6HR #1 vial oxyCODONE /ACETAMINOPHEN [Percocet 5/325 mg] 1 tab PO Q6H PRN #14 tablet PRN Reason: Pain, Moderate (4-6) Potassium Chloride [K-Dur] 20 meq PO QDAY #3 tablet
[2017-03-20] MEDS ORDERED: XANAX PO ONE (13:07)
[2017-03-20] MEDS ORDERED: XANAX ONE ×2 (15:15→15:16)
[2017-03-20] MEDS: NOVOLOG SUB-Q SCH ×3 (16:43→22:53)
[2017-03-20] MEDS: NORVASC PO SCH (16:44)
--- NOTE | 2017-03-20 18:35 | Progress Note ---
Assessment and Plan This is a 62 year-old male, presents to the emergency department via EMS with a complaint of malaise. His blood cx grew enterococcus and ID recommended to continue abx till 03/09/17. he was discharge to [place] to complete IV abx. On the route to [place] by ambulance pt refused to go without his motor wheelchair and he was brought back to hospital. Since then he is in the ER and completed his abx yesterday. Per ID no further work up necessary. Discussed with physician at [facility] he was accepted to go to [facility] facility [facility] [place] for further placement. But patient refused to go when transport arrived. /Debility unable to care for himself, needs placement -awaiting placement, continue PT /Hypokalemia: cont to replete, level 3.1 today /Sepsis due to bacteremia and UTI ID consult requsted for ABx Coverage Patient has indwelling santos catheter which was exchanged blood cx growing Enterococcus durans, TTE showed no vegetations. * Enterococcus Bactermia, completed Unisyn till 03/19 to be transfered to [facility] for placement /Septic shock: Sec to sepsis IV NS boluses given in the ER and placed on levophed. Off levophed since 03/07/17 / Lactic acidosis Sec to Sepsis, trended down / UTI (urinary tract infection): has indwelling Santos's POA completed treatment with unasyn /Decubital ulcer POA has multiple abrasions on legs but no sacral ulcers /Paraplegia Patient dependent on Nurses for ADL's and gets Home visits regularly. Suggested SNF previously but patient refused on on indwelling Santos catheter / COPD (chronic obstructive pulmonary disease) not in exacerbation Duonebs prn /Stasis dermatitis of both legs wound care / DVT prophylaxis on Lovenox History Interval history: No acute event o/n waiting to complete abx and then possible placement Hospitalist Physical - Physical exam Narrative exam: General.: Appears well, no distress, nontoxic HEENT: Moist mucous membranes, extraocular muscles intact, no lymphadenopathy Neck: supple Cardiac: S1-S2 heard Lungs: clear to auscultation bilaterally Abdomen: soft , nontender, nondistended, bowel sounds positive Extremities: no edema clubbing or cyanosis Skin:no rash Neurologic: paraplegic Psych: appropriate behavior, appropriate mood, corporative, judgment intact Subjective Date of service: 03/20/17 Objective - Constitutional Vitals: Vital Signs - 12hr 03/20/17 03/20/17 06:42 18:30 Temperature 98.9 F 98.2 F Pulse Rate 75 Respiratory 18 Rate Blood Pressure 116/72 149/77 [Left] O2 Sat by Pulse 98 Oximetry - Labs CBC & Chem 7: 03/19/17 07:50 03/20/17 04:20 Labs: Abnormal lab results 03/20/17 Range/Units 04:20 Potassium 3.1 L (3.6-5.0) mmol/L BUN 2 L (9-20) mg/dL Creatinine 0.7 L (0.8-1.5) mg/dL Glucose 116 H (75-100) mg/dL Calcium 7.9 L (8.4-10.2) mg/dL
[2017-03-21] MEDS: PERCOCET 5/325 PO PRN (03:09)
[2017-03-21] MEDS ORDERED: ZITHROMAX ONE (04:42)
[2017-03-21] MEDS: UNASYN/NS 3 GM/100 ML 3 GM/100 ML BAG IV SCH ×3 (05:48→17:54)
[2017-03-21] MEDS: NOVOLOG SUB-Q SCH ×4 (09:27→22:00)
[2017-03-21] MEDS: NORVASC PO SCH (11:11)
--- NOTE | 2017-03-21 14:53 | Progress Note ---
Assessment and Plan Assessment and plan: Patient is a 62 year-old man, who is a presents to the emergency department via EMS with a complaint of malaise. His blood cx grew enterococcus and ID recommended to continue abx till 03/09/17. he was discharge to [place] to complete IV abx. On the route to [place] by ambulance pt refused to go without his motor wheelchair and he was brought back to hospital. Since then he is in the ER and completed his abx yesterday. Per ID no further work up necessary. Discussed with physician at [place] he was accepted to go to [facility] facility at [place] for further placement. But patient refused to go when transport arrived. /Debility unable to care for himself, needs placement -awaiting placement, continue PT /Hypokalemia: cont to replete, level 3.1 today /Sepsis due to bacteremia and UTI ID consult requsted for ABx Coverage Patient has indwelling santos catheter which was exchanged blood cx growing Enterococcus durans, TTE showed no vegetations. Enterococcus Bactermia, completed Unisyn till 03/19 to be transfered to [facility] for placement /Septic shock: Sec to sepsis IV NS boluses given in the ER and placed on levophed. Off levophed since 03/07/17 / Lactic acidosis Sec to Sepsis, trended down / UTI (urinary tract infection): has indwelling Santos's POA completed treatment with unasyn /Decubital ulcer POA has multiple abrasions on legs but no sacral ulcers /Paraplegia Patient dependent on Nurses for ADL's and gets Home visits regularly. Suggested SNF previously but patient refused on on indwelling Santos catheter / COPD (chronic obstructive pulmonary disease) not in exacerbation Duonebs prn /Stasis dermatitis of both legs wound care / DVT prophylaxis on Lovenox History Interval history: Patient was seen and examined. Follow-up on current diagnosis. Overnight uneventful. Patient denies any chest pain, shortness breath, nausea/vomiting or severe headaches. Imaging, nursing note, chart, labs and old chart reviewed. Discussed with patient. Hospitalist Physical - Physical exam Narrative exam: General.: Appears well, no distress, nontoxic HEENT: Moist mucous membranes, extraocular muscles intact, no lymphadenopathy Neck: supple Cardiac: S1-S2 heard Lungs: clear to auscultation bilaterally Abdomen: soft , nontender, nondistended, bowel sounds positive Extremities: no edema clubbing or cyanosis Skin:no rash Neurologic: paraplegic Psych: appropriate behavior, appropriate mood, corporative, judgment intact - Constitutional Vitals: Temp Pulse Resp BP Pulse Ox 98.6 F 75 16 161/84 98 03/21/17 08:10 03/21/17 10:27 03/21/17 08:10 03/21/17 10:27 03/21/17 08:10 General appearance: Present: no acute distress Results - Labs CBC & Chem 7: 03/19/17 07:50 03/20/17 04:20 Labs: Laboratory Last Values WBC 5.8 K/mm3 (4.5-11.0) 03/19/17 07:50 RBC 3.49 M/mm3 (3.65-5.03) L 03/19/17 07:50 Hgb 11.6 gm/dl (11.8-15.2) L 03/19/17 07:50 Hct 34.2 % (35.5-45.6) L 03/19/17 07:50 MCV 98 fl (84-94) H 03/19/17 07:50 MCH 33 pg (28-32) H 03/19/17 07:50 MCHC 34 % (32-34) 03/19/17 07:50 RDW 13.9 % (13.2-15.2) 03/19/17 07:50 Plt Count 57 K/mm3 (140-440) L 03/19/17 07:50 Lymph % (Auto) 32.2 % (13.4-35.0) 03/15/17 10:45 [place] % (Auto) 7.3 % (0.0-7.3) 03/15/17 10:45 Eos % (Auto) 1.3 % (0.0-4.3) 03/15/17 10:45 Baso % (Auto) 0.4 % (0.0-1.8) 03/15/17 10:45 Lymph # 2.0 K/mm3 (1.2-5.4) 03/15/17 10:45 [place] # 0.5 K/mm3 (0.0-0.8) 03/15/17 10:45 Eos # 0.1 K/mm3 (0.0-0.4) 03/15/17 10:45 Baso # 0.0 K/mm3 (0.0-0.1) 03/15/17 10:45 Seg Neutrophils % 58.8 % (40.0-70.0) 03/15/17 10:45 Seg Neutrophils # 3.7 K/mm3 (1.8-7.7) 03/15/17 10:45 PT 17.4 Sec. (12.2-14.9) H 03/15/17 10:45 INR 1.35 (0.87-1.13) H 03/15/17 10:45 VBG pH 7.409 (7.320-7.420) 03/15/17 10:45 Sodium 139 mmol/L (137-145) 03/20/17 04:20 Potassium 3.1 mmol/L (3.6-5.0) L 03/20/17 04:20 Chloride 103.8 mmol/L (98-107) 03/20/17 04:20 Carbon Dioxide 26 mmol/L (22-30) 03/20/17 04:20 Anion Gap 12 mmol/L 03/20/17 04:20 BUN 2 mg/dL (9-20) L 03/20/17 04:20 Creatinine 0.7 mg/dL (0.8-1.5) L 03/20/17 04:20 Estimated GFR > 60 ml/min 03/20/17 04:20 BUN/Creatinine Ratio 3 % 03/20/17 04:20 Glucose 116 mg/dL (75-100) H 03/20/17 04:20 POC Glucose 169 (70-105) H 03/21/17 11:43 Lactic Acid 1.00 mmol/L (0.7-2.0) 03/15/17 10:45 Calcium 7.9 mg/dL (8.4-10.2) L 03/20/17 04:20 Total Bilirubin 1.50 mg/dL (0.1-1.2) H 03/15/17 10:45 Direct Bilirubin 0.8 mg/dL (0-0.2) H 03/15/17 10:45 Indirect Bilirubin 0.7 mg/dL 03/15/17 10:45 AST 30 units/L (5-40) 03/15/17 10:45 ALT 10 units/L (7-56) 03/15/17 10:45 Alkaline Phosphatase 89 units/L (35-129) 03/15/17 10:45 Total Protein 7.3 g/dL (6.3-8.2) 03/15/17 10:45 Albumin 2.3 g/dL (3.9-5) L 03/15/17 10:45 Albumin/Globulin Ratio 0.5 % 03/15/17 10:45
[2017-03-22] MEDS: UNASYN/NS 3 GM/100 ML 3 GM/100 ML BAG IV SCH ×2 (00:45→06:05)
[2017-03-22 09:33] VITALS: BP 159/72
--- NOTE | 2017-03-22 15:16 | Discharge Summary ---
Providers - Providers Date of Admission: 03/15/17 13:17 Date of discharge: 03/22/17 Attending physician: TOMMY HOPPER Primary care physician: INSTRUMENT FITTER Hospitalization Condition: Stable Hospital course: Patient is a 62 year-old man, who is a presents to the emergency department via EMS with a complaint of malaise. His blood cx grew enterococcus and ID recommended to continue abx till 03/09/17. he was discharge to [facility] to complete IV abx. On the route to [place] by ambulance pt refused to go without his motor wheelchair and he was brought back to hospital. Since then he is in the ER and completed his abx yesterday. Per ID no further work up necessary. Discussed with physician at [place] he was accepted to go to [place] facility at [place] for further placement. But patient refused to go when transport arrived. /Debility unable to care for himself, needs placement -awaiting placement, continue PT /Hypokalemia: cont to replete, level 3.1 today /Sepsis due to bacteremia and UTI ID consult requsted for ABx Coverage Patient has indwelling santos catheter which was exchanged blood cx growing Enterococcus durans, TTE showed no vegetations. Enterococcus Bactermia, completed Unisyn till 03/19 to be transfered to [facility] for placement /Septic shock: Sec to sepsis, see prior records for lactic levels IV NS boluses given in the ER and placed on levophed. Off levophed since 03/07/17 / Lactic acidosis Sec to Sepsis, trended down / UTI (urinary tract infection): has indwelling Santos's POA completed treatment with unasyn /Decubital ulcer POA has multiple abrasions on legs but no sacral ulcers /Paraplegia Patient dependent on Nurses for ADL's and gets Home visits regularly. Suggested SNF previously but patient refused on on indwelling Santos catheter / COPD (chronic obstructive pulmonary disease) not in exacerbation Duonebs prn /Stasis dermatitis of both legs wound care / DVT prophylaxis on Lovenox Going to [facility] today. Disposition: [id number] ANOTHER TYPE HLTHCARE Time spent for discharge: 38 min Core Measure Documentation - Palliative Care Palliative Care/ Comfort Measures: Not Applicable - Core Measures Any of the following diagnoses?: none - VTE Discharge Requirements Deep Vein Thrombosis/Pulmonary Embolism Present on Admission: No Has pt received <5 days of overlap therapy or INR<2.0: No Anticoagulant overlap therapy prescribed at discharge: No Contraindication No Overlap Therapy order at [facility]: Not Indicated Exam - Physical Exam Narrative exam: General.: Appears well, no distress, nontoxic HEENT: Moist mucous membranes, extraocular muscles intact, no lymphadenopathy Neck: supple Cardiac: S1-S2 heard Lungs: clear to auscultation bilaterally Abdomen: soft , nontender, nondistended, bowel sounds positive Extremities: no edema clubbing or cyanosis Skin:no rash Neurologic: paraplegic Psych: appropriate behavior, appropriate mood, corporative, judgment intact - Constitutional Vitals: Temp Pulse Resp BP Pulse Ox 97 F L 82 16 159/72 98 03/21/17 20:00 03/22/17 09:27 03/21/17 20:00 03/22/17 09:27 03/21/17 20:00 Plan Activity: up only with assistance, fall precautions, other (no strenous activity until cleared by pcp) Diet: low salt Follow up with: PRIMARY CARE, [Primary Care Provider] - 3-5 Days Prescriptions: amLODIPine [Norvasc] 5 mg PO QDAY #30 tablet Insulin Regular, Human [HumuLIN R] 0 units SUB-Q Q6HR #1 vial oxyCODONE /ACETAMINOPHEN [Percocet 5/325 mg] 1 tab PO Q6H PRN #14 tablet PRN Reason: Pain, Moderate (4-6) Potassium Chloride [K-Dur] 20 meq PO QDAY #3 tablet
== END 2017-03-22 09:30 | disposition short-term general hospital (02) | DRG 314 ==
LOC: ED 08:38 → 3A 13:17 → EEVIPCON 13:17 → 3A 03-17 10:59
PROVIDERS: ADMIT Internal Medicine; ATTEND Internal Medicine
DX: T80.219A Unspecified infection due to central venous catheter, initial encounter (principal); A41.9 Sepsis, unspecified organism; R65.21 Severe sepsis with septic shock; L03.113 Cellulitis of right upper limb; G82.20 Paraplegia, unspecified; N39.0 Urinary tract infection, site not specified; I11.0 Hypertensive heart disease with heart failure; I50.9 Heart failure, unspecified; E11.9 Type 2 diabetes mellitus without complications; Z79.4 Long term (current) use of insulin; E87.6 Hypokalemia; J44.9 Chronic obstructive pulmonary disease, unspecified; F17.200 Nicotine dependence, unspecified, uncomplicated; Z83.3 Family history of diabetes mellitus; Z82.49 Family history of ischemic heart disease and other diseases of the circulatory system; L89.90 Pressure ulcer of unspecified site, unspecified stage; I87.2 Venous insufficiency (chronic) (peripheral); Y83.8 Other surgical procedures as the cause of abnormal reaction of the patient, or of later complication, without mention of misadventure at the time of the procedure; Y92.89 Other specified places as the place of occurrence of the external cause
CPT/HCPCS: 36415; 71010; 80048; 80074; 82140; 82805; 82962; 85025; 85027; 85610; 87040; 87086; 93005; 93010; J0295; J3370; J7040